=== PATIENT | male | born 1970 | race Two or more races ===

== ENCOUNTER 2017-06-03 14:36 | Inpatient (IN) | payer OTHER ==
[~2017-06-03] VITALS: Ht 165.1 cm; Wt 72.7 kg
[2017-06-03] MEDS ORDERED: ONDANSETRON 4 MG INJ IV PRN (17:00)
[2017-06-03] MEDS ORDERED: HYDROCODONE/APAP (5/325) TAB PO PRN (17:00)
[2017-06-03] MEDS ORDERED: VANCOMYCIN IV PER PHARMACY XX SCH (17:00)
[2017-06-03 17:22] VITALS: BP 166/86; RESP 22
[2017-06-03] MEDS: ACETAMINOPHEN 325 MG TAB PO PRN ×2 (17:50→21:58)
[2017-06-03] MEDS: morphine 2 MG INJ IV PRN ×2 (17:50→21:58)
[2017-06-03 17:57] VITALS: Ht 165.1 cm; Wt 72.7 kg
[2017-06-03 18:28] LABS: ABNORMAL IP MESSAGE 1; BASOPHIL # 0.1 10^3/ul (0.0-0.1); BASOPHILS % 0.5 % (0.0-2.0); EOSINOPHILS % 0.1 % (0.0-7.0); HEMOGLOBIN 11.4 g/dl (14.0-18.0); LYMPHOCYTES # 1.1 10^3/ul (0.8-2.9); LYMPHOCYTES % 12.2 % (15.0-51.0); MEAN CORPUSCULAR HEMOGLOBIN 33.5 pg (29.0-33.0); MEAN CORPUSCULAR HGB CONC 33.5 g/dl (32.0-37.0); MEAN PLATELET VOLUME 12.9 fl (7.4-10.4); MONOCYTE # 0.9 10^3/ul (0.3-0.9); MONOCYTES % 10.3 % (0.0-11.0); NEUTROPHILS % 76.4 % (39.0-77.0); PLATELET COUNT 68 10^3/UL (140-415); POSITIVE DIFF @See below; WHITE BLOOD COUNT 9.1 10^3/ul (4.8-10.8)
[2017-06-03] MEDS ORDERED: VANCOMYCIN 1.5 GM in SOD CHLORIDE 0.9% 250 ML IVPB SCH (18:30)
[2017-06-03 18:56] LABS: ALBUMIN/GLOBULIN RATIO 0.75; BILIRUBIN,DIRECT 0.4 mg/dl (0.00-0.20); BILIRUBIN,INDIRECT 1.4 mg/dl (0-1.1); BILIRUBIN,TOTAL 1.8 mg/dl (0.2-1.3); CALCIUM 8.7 mg/dl (8.4-10.2); CREATININE 0.76 mg/dl (0.61-1.24); POTASSIUM 3.8 mmol/L (3.5-5.1); TOTAL PROTEIN 9.3 g/dl (6.1-8.1)
[2017-06-03 20:23] VITALS: BP 159/82; RESP 17
[2017-06-03] MEDS: FAMOTIDINE 20 MG TAB PO SCH (21:58)
[2017-06-04 02:47] VITALS: BP 159/90; RESP 17
[2017-06-04] MEDS: morphine 2 MG INJ IV PRN ×3 (03:04→21:53)
[2017-06-04] MEDS: HYDROCODONE/APAP (5/325) TAB PO PRN (04:22)
[2017-06-04 07:51] VITALS: BP 153/87; RESP 20
[2017-06-04] MEDS: FAMOTIDINE 20 MG TAB PO SCH ×2 (08:59→21:52)
[2017-06-04] MEDS: ACETAMINOPHEN 325 MG TAB PO PRN ×2 (08:59→15:14)
[2017-06-04] MEDS: VANCOMYCIN 1.25 GM in SOD CHLORIDE 0.9% 250 ML IVPB SCH ×2 (09:01→21:52)
[2017-06-04 14:22] VITALS: BP 145/69; RESP 18
--- NOTE | 2017-06-04 16:28 | PN ---
Date/Time of Note Date/Time of Note DATE: 06/04/17 TIME: 16:23 Assessment/Plan VTE Prophylaxis VTE Prophylaxis Intervention: contraindicated Lines/Catheters IV C[facility]ter Type (from [facility] Saline Lock Urinary Cath still in place: No Assessment/Plan Chief Complaint/Hosp Course 47 y/o with # Left ankle septic arthritis, cx from [facility] +staph # Low grade fevers secondary #1 # ETOH Cirrhosis # Thrombocytopenia Recs - Spoke to Dr alfred trying to arrange OR time for wash out - c/w Vancomycin/rocephin - pain control - ID consult - gently iv fluids Problems: Subjective 24 Hr Interval Summary Free Text/Dictation Says that left ankle edema not improving Low grade fevers Exam/Review of Systems Vital Signs Vitals Vital Signs Date Time Temp Pulse Resp B/P Pulse Ox O2 Delivery O2 Flow Rate FiO2 06/04/17 14:22 100.3 91 18 145/69 98 Intake and Output 06/03/17 06/03/17 06/04/17 15:00 23:00 07:00 Intake Total 250 ml 400 ml Output Total 500 ml Balance 250 ml -100 ml Exam Gen:Awake,alert Neck:supple CVS:Regular rate and rthym Lungs:clear Abdomen:soft, non tender Ext: left ankle ttp erthyema, swelling , restricted motion Results Result Diagram: 06/03/17 1750 06/03/17 1750 Results 24 hrs Laboratory Tests Test 06/03/17 17:50 White Blood Count 9.1 Red Blood Count 3.40 L Hemoglobin 11.4 L Hematocrit 34.0 L Mean Corpuscular Volume 100.0 Mean Corpuscular Hemoglobin 33.5 H Mean Corpuscular Hemoglobin Concent 33.5 Red Cell Distribution Width 18.0 H Platelet Count 68 L Mean Platelet Volume 12.9 H Neutrophils % 76.4 Lymphocytes % 12.2 L Monocytes % 10.3 Eosinophils % 0.1 Basophils % 0.5 Nucleated Red Blood Cells % 0.0 Neutrophils # 7.0 Lymphocytes # 1.1 Monocytes # 0.9 Eosinophils # 0.0 Basophils # 0.1 Nucleated Red Blood Cells # 0.0 Sodium Level 139 Potassium Level 3.8 Chloride Level 106 Carbon Dioxide Level 21 Anion Gap 16 Blood Urea Nitrogen 11 Creatinine 0.76 Glucose Level 119 Calcium Level 8.7 Total Bilirubin 1.8 H Direct Bilirubin 0.40 H Indirect Bilirubin 1.4 H Aspartate Amino Transf (AST/SGOT) 115 H Alanine Aminotransferase (ALT/SGPT) 46 Alkaline Phosphatase 244 H Total Protein 9.3 H Albumin 4.0 Globulin 5.30 H Albumin/Globulin Ratio 0.75 Medications Medications Current Medications Acetaminophen (Tylenol Tab) 650 mg Q6H PRN PO PAIN AND OR ELEVATED TEMP Last administered on 06/04/17 15:14; Admin Dose 650 MG; Start 06/03/17 at 17:00 Morphine Sulfate (morphine) 2 mg Q4H PRN IV PAIN LEVEL 6-10 Last administered on 06/04/17 11:49; Admin Dose 2 MG; Start 06/03/17 at 17:00 Ondansetron HCl (Zofran Inj) 4 mg Q6 PRN IV NAUSEA AND/OR VOMITING; Start at 17:00 Famotidine (Pepcid) 20 mg BID PO Last administered on 06/04/17 08:59; Admin Dose 20 MG; Start 06/03/17 at 21:00 Influenza Virus Vaccine 0.5 ml 0.5 ml ONCE ONCE IM* ; Start 06/05/17 at 10:00; Stop 06/05/17 at 10:01 Vancomycin HCl/ Sodium Chloride (Vancocin/NS) 250 ml @ 83.333 mls/ hr Q12H IVPB Last administered on 06/04/17 09:01; Admin Dose 83.333 MLS/HR; Start at 09:00 Acetaminophen/ Hydrocodone Bitart ([place] (5/325)) 1 tab Q4H PRN PO PAIN LEVEL 6 -10 Last administered on 06/04/17 04:22; Admin Dose 1 TAB; Start 06/04/17 at 04:15 Miscellaneous Information VANCOMYCIN TROUGH AT 0800 ONCE ONCE XX ; Start 06/05/17 at 08:00; Stop 06/05/17 at 08:01 Ceftriaxone Sodium (Rocephin) 50 ml @ 100 mls/hr Q24H IVPB ; Start 06/04/17 at 16:30 SHAYY MCCABE MD Jun 04, 2017 16:28
[2017-06-04] MEDS: CEFTRIAXONE 1 GM/50 ML (PMX) 50 ML IVPB SCH (16:34)
[2017-06-04 17:07] LABS: INR 1.32; PROTIME 16.5 Sec (12.2-14.2); PT RATIO 1.3
[2017-06-04 20:00] VITALS: BP 156/80; RESP 20
[2017-06-05] VITALS (14 sets, daily range): BP systolic 121–167; BP diastolic 60–87; PULSE 78–88; RESP 14–20
[2017-06-05] MEDS: HYDROCODONE/APAP (5/325) TAB PO PRN (01:48)
[2017-06-05 05:51] LABS: ABNORMAL IP MESSAGE 1; BASOPHIL # 0.1 10^3/ul (0.0-0.1); BASOPHILS % 0.6 % (0.0-2.0); EOSINOPHILS % 0.4 % (0.0-7.0); HEMATOCRIT 30.8 % (42.0-52.0); HEMOGLOBIN 10.3 g/dl (14.0-18.0); LYMPHOCYTES # 1.2 10^3/ul (0.8-2.9); MEAN CORPUSCULAR HEMOGLOBIN 33.1 pg (29.0-33.0); MEAN CORPUSCULAR HGB CONC 33.4 g/dl (32.0-37.0); MONOCYTE # 1.3 10^3/ul (0.3-0.9); MONOCYTES % 15.8 % (0.0-11.0); NEUTROPHIL # 5.4 10^3/ul (1.6-7.5); NEUTROPHILS % 67.7 % (39.0-77.0); PLATELET COUNT 74 10^3/UL (140-415); POSITIVE DIFF @See below; RED BLOOD COUNT 3.11 10^6/ul (4.70-6.10); RED CELL DISTRIBUTION WIDTH 17.5 % (11.5-14.5)
[2017-06-05 06:24] LABS: MAGNESIUM 1.8 mg/dl (1.7-2.5); PHOSPHORUS 3.4 mg/dl (2.5-4.9)
[2017-06-05 06:27] LABS: ALBUMIN 3.2 g/dl (3.3-4.9); ALBUMIN/GLOBULIN RATIO 0.62; CALCIUM 8.4 mg/dl (8.4-10.2); CREATININE 0.69 mg/dl (0.61-1.24); POTASSIUM 3.7 mmol/L (3.5-5.1); TOTAL PROTEIN 8.3 g/dl (6.1-8.1)
--- NOTE | 2017-06-05 08:39 | HP ---
DATE OF ADMISSION: 06/03/2017 REASON FOR ADMISSION: Left ankle septic arthritis. HISTORY OF PRESENT ILLNESS: Patient is transferred from [facility] for septic arthritis of the left ankle. Since the patient is contracted, this hospital is capitated with the insurance. A 47-year-old male with heavy ETOH abuse in the past, history of cirrhosis, seen in ED at [facility] on 05/31/2017 with left ankle pain associated with redness and swelling. Ankle was aspirated with a cell count of 39,000, 89% PMNs, no crystals. Initial negative Gram stain. The patient had pain improvement with NSAIDs, bilateral DIP joint tophi, no pain with motion . 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 The patient was having worsening pain, swelling, fevers and chills. Ibuprofen did not help. Ortho was consulted there, and pain was spreading proximally to the mid leg. He was not on antibiotics. Prior cultures have resulted with +1 staph infection. However, case was discussed with Dr. Bills. Patient was started on vancomycin and Rocephin, and was transferred here for insurance reasons. PAST MEDICAL HISTORY: ETOH abuse, cirrhosis. PAST SURGICAL HISTORY: Denies. ALLERGIES: DENIES. MEDICATIONS AT HOME: Denies. SOCIAL HISTORY: Lives in a van. Does not work. Endorses heavy alcohol daily, 4 to 6 [employer] daily. Denies any smoking, any IVDA. He stopped drinking 2 weeks ago. FAMILY HISTORY: Noncontributory. REVIEW OF SYSTEMS: Patient used to have frequent nosebleeds, which is on and off. Denies any abdominal pain, nausea, vomiting, diarrhea. Denies any headache, any blurry vision. Denies any focal neurological deficits. Patient has left ankle swelling and pain. PHYSICAL EXAMINATION: VITAL SIGNS: Fever 100.3, heart rate 97, respirations 22, blood pressure 153/87 , saturating 97%. GENERAL: The patient is awake, alert, oriented x4, does not appear to be in any acute distress. HEENT: Pupils equal, round, reactive to light. NECK: Supple, no JVD. HEART: Regular rate and rhythm. LUNGS: Clear to auscultate bilaterally. ABDOMEN: Soft, nontender, nondistended. Positive normoactive bowel sounds. EXTREMITIES: Left lower extremity 2+ distal pulses. Ankle joint with joint effusion, warmth some edema. Patient has a mike on the left lower extremity. Full range of motion, 5/5 strength. DIAGNOSTIC DATA: Shows here a white count 9.1, hemoglobin 11.4, platelet count 68. BMP within normal limits. Total bilirubin 1.8, direct bilirubin 0.8, AST 115, alkaline phosphatase 244. ASSESSMENT AND PLAN: This is a 47-year-old male presenting with: 1. Left ankle septic arthritis positive for staph. 2. ETOH cirrhosis. 3. Thrombocytopenia secondary to #2. PLAN: At this period of time, the patient is admitted to med-surg. We will continue the patient on IV fluids, vancomycin and Rocephin. Podiatry/ortho consultation has been requested. Patient will need washout of the joint. The rest of the treatment will depend on the patient's hospitalization course. Dictated By: SHAYY RAMIREZ/ETHAN Conf#: [id number] DID#: [id number] LEANNE
[2017-06-05] MEDS: VANCOMYCIN 1.25 GM in SOD CHLORIDE 0.9% 250 ML IVPB SCH ×2 (09:40→17:33)
[2017-06-05] MEDS: FAMOTIDINE 20 MG TAB PO SCH ×2 (09:41→23:16)
[2017-06-05] MEDS: morphine 2 MG INJ IV PRN (09:41)
[2017-06-05] MEDS ORDERED: INFLUENZA VIRUS VACCINE 0.5 ML SYG IM* ONE (10:00)
--- NOTE | 2017-06-05 12:15 | CONS ---
Date/Time of Note Date/Time of Note DATE: 06/05/17 TIME: 12:11 Assessment/Plan Assessment/Plan Problems: (1) Septic arthritis of ankle (2) Left ankle pain (3) ETOH abuse (4) EtOH dependence (5) Cirrhosis of liver Additional Assessment/Plan Patient will be scheduled for left ankle arthroscopy with debridement. Thank you again for involving me in the care of this patient. If you have any questions regarding this case, please feel free to contact me at pager: [phone] or reach me at mobile: [phone]. Consultation Date/Type/Reason Admit Date/Time Jun 03, 2017 at 16:30 Date of Consultation: Jun 03, 2017 Type of Consultation: Foot and ankle surgery Reason for Consultation Evaluation and treatment of left ankle Hx of Present Illness Thank you very much for involving me in the care of this patient. As you know this is a 47-year-old male patient with multiple medical problems including heavy EtOH abuse, history of cirrhosis, who was transferred from [facility] for septic arthritis of the left ankle. Patient was seen on May 31, 2017 at the emergency room at [facility]. His ankle was aspirated with a cell count of 39,000. Patient was given NSAIDs and his pain was apparently improved and the thought was that his symptoms are consistent with crystal arthropathy. Patient apparently had worsening of his pain, swelling with fever and chills. Currently patient is started on vancomycin and Rocephin I was consulted for evaluation and treatment. Past Medical History As per history of present illness. Past Surgical History As per history of present illness. Social History As per history of present illness. Smoking Status: Never smoker Exam/Review of Systems Vital Signs Vitals Vital Signs Date Time Temp Pulse Resp B/P Pulse Ox O2 Delivery O2 Flow Rate FiO2 06/05/17 07:35 97.8 97 18 137/74 97 Intake and Output 06/04/17 06/04/17 06/05/17 15:00 23:00 07:00 Intake Total 250 ml 1550 ml 970 ml Output Total 1200 ml 1000 ml Balance 250 ml 350 ml -30 ml Exam Patient was seen and examined at bedside. Patient has edema of the left ankle with marked area corresponds to the erythema. Tender to exam with no crepitus on range of motion. Palpable pulses with decreased sensation noted bilateral feet. Imaging reviewed. Labs reviewed. Results Result Diagram: 06/05/17 0444 06/05/17 0444 Results 24 hrs Laboratory Tests Test 06/04/17 16:29 06/05/17 04:44 06/05/17 08:46 Prothrombin Time 16.5 H Prothrombin Time Ratio 1.3 INR International Normalized Ratio 1.32 White Blood Count 8.0 Red Blood Count 3.11 L Hemoglobin 10.3 L Hematocrit 30.8 L Mean Corpuscular Volume 99.0 Mean Corpuscular Hemoglobin 33.1 H Mean Corpuscular Hemoglobin Concent 33.4 Red Cell Distribution Width 17.5 H Platelet Count 74 L Mean Platelet Volume 12.0 H Neutrophils % 67.7 Lymphocytes % 15.0 Monocytes % 15.8 H Eosinophils % 0.4 Basophils % 0.6 Nucleated Red Blood Cells % 0.0 Neutrophils # 5.4 Lymphocytes # 1.2 Monocytes # 1.3 H Eosinophils # 0.0 Basophils # 0.1 Nucleated Red Blood Cells # 0.0 Sodium Level 136 Potassium Level 3.7 Chloride Level 104 Carbon Dioxide Level 23 Anion Gap 13 Blood Urea Nitrogen 9 Creatinine 0.69 Glucose Level 99 Calcium Level 8.4 Phosphorus Level 3.4 Magnesium Level 1.8 Total Bilirubin 1.0 Direct Bilirubin 0.00 # Indirect Bilirubin 1.0 Aspartate Amino Transf (AST/SGOT) 109 H Alanine Aminotransferase (ALT/SGPT) 54 Alkaline Phosphatase 218 H Total Protein 8.3 H Albumin 3.2 L Globulin 5.10 H Albumin/Globulin Ratio 0.62 Vancomycin Level Trough < 5.0 L Medications Medications Current Medications Acetaminophen (Tylenol Tab) 650 mg Q6H PRN PO PAIN AND OR ELEVATED TEMP Last administered on 06/04/17 15:14; Admin Dose 650 MG; Start 06/03/17 at 17:00 Morphine Sulfate (morphine) 2 mg Q4H PRN IV PAIN LEVEL 6-10 Last administered on 06/05/17 09:41; Admin Dose 2 MG; Start 06/03/17 at 17:00 Ondansetron HCl (Zofran Inj) 4 mg Q6 PRN IV NAUSEA AND/OR VOMITING; Start at 17:00 Famotidine (Pepcid) 20 mg BID PO Last administered on 06/05/17 09:41; Admin Dose 20 MG; Start 06/03/17 at 21:00 Acetaminophen/ Hydrocodone Bitart 1 tab 1 tab Q4H PRN PO PAIN LEVEL 6-10 Last administered on 06/05/17 01:48; Admin Dose 1 TAB; Start 06/04/17 at 04:15 Ceftriaxone Sodium 50 ml @ 100 mls/hr Q24H IVPB Last administered on 16:34; Admin Dose 100 MLS/HR; Start 06/04/17 at 16:30 Vancomycin HCl/ Sodium Chloride (Vancocin/NS) 250 ml @ 83.333 mls/ hr Q8H IVPB ; Start 06/05/17 at 18:00 CASPER GARCIA DPM Jun 05, 2017 12:15
--- NOTE | 2017-06-05 12:16 | PN ---
Date/Time of Note Date/Time of Note DATE: 06/05/17 TIME: 12:15 Assessment/Plan Lines/Catheters IV Catheter Type (from Nrs): Saline Lock May in Place (from Nrsg): No Assessment/Plan Problems: (1) Cirrhosis of liver (2) Left ankle pain (3) Septic arthritis of ankle (4) EtOH dependence (5) ETOH abuse Assessment/Plan Patient is scheduled today at 5:30 PM for left ankle arthroscopy with debridement. Orders are placed in the chart. Subjective 24 Hr Interval Summary Patient was seen at bedside. Patient is in no acute distress. Patient reports no new adverse events. Patient denies fever, chills, nausea or vomiting. Patient denies pain. Patient denies recent trauma. Patient reports bandages are being changed as directed. Patient does not report any new problems. Exam/Review of Systems Vital Signs Vitals Vital Signs Date Time Temp Pulse Resp B/P Pulse Ox O2 Delivery O2 Flow Rate FiO2 06/09/17 14:40 98.1 87 22 175/105 98 06/05/17 21:45 Room Air Intake and Output 06/08/17 06/08/17 06/09/17 15:00 23:00 07:00 Intake Total 250 ml 1620 ml 700 ml Output Total 700 ml 850 ml Balance 250 ml 920 ml -150 ml Exam Free Text/Dictation Patient continues to have pain on examination of the left ankle with mild reduction in edema and significant reduction in erythema. Patient is on IV antibiotics. X-ray shows no fracture or dislocation of the left ankle. No other changes noted on examination today. Results Result Diagram: 06/09/17 0501 06/08/17 0450 CASPER GARCIA DPM Jun 05, 2017 12:15
--- NOTE | 2017-06-05 14:08 | CONS ---
Date/Time of Note Date/Time of Note DATE: 06/05/17 TIME: 14:04 Consult Date/Type/Reason Admit Date/Time Jun 03, 2017 at 16:30 Initial Consult Date 06/03/17 Type of Consultation: ID Objective Vital Signs Date Time Temp Pulse Resp B/P Pulse Ox O2 Delivery O2 Flow Rate FiO2 06/05/17 07:35 97.8 97 18 137/74 97 Intake and Output 06/04/17 06/04/17 06/05/17 14:59 22:59 06:59 Intake Total 250 ml 1550 ml 970 ml Output Total 1200 ml 1000 ml Balance 250 ml 350 ml -30 ml Results/Medications Result Diagram: 06/05/17 0444 06/05/17 0444 Results 24 hrs Laboratory Tests Test 06/04/17 16:29 06/05/17 04:44 06/05/17 08:46 Prothrombin Time 16.5 H Prothrombin Time Ratio 1.3 INR International Normalized Ratio 1.32 White Blood Count 8.0 Red Blood Count 3.11 L Hemoglobin 10.3 L Hematocrit 30.8 L Mean Corpuscular Volume 99.0 Mean Corpuscular Hemoglobin 33.1 H Mean Corpuscular Hemoglobin Concent 33.4 Red Cell Distribution Width 17.5 H Platelet Count 74 L Mean Platelet Volume 12.0 H Neutrophils % 67.7 Lymphocytes % 15.0 Monocytes % 15.8 H Eosinophils % 0.4 Basophils % 0.6 Nucleated Red Blood Cells % 0.0 Neutrophils # 5.4 Lymphocytes # 1.2 Monocytes # 1.3 H Eosinophils # 0.0 Basophils # 0.1 Nucleated Red Blood Cells # 0.0 Sodium Level 136 Potassium Level 3.7 Chloride Level 104 Carbon Dioxide Level 23 Anion Gap 13 Blood Urea Nitrogen 9 Creatinine 0.69 Glucose Level 99 Calcium Level 8.4 Phosphorus Level 3.4 Magnesium Level 1.8 Total Bilirubin 1.0 Direct Bilirubin 0.00 # Indirect Bilirubin 1.0 Aspartate Amino Transf (AST/SGOT) 109 H Alanine Aminotransferase (ALT/SGPT) 54 Alkaline Phosphatase 218 H Total Protein 8.3 H Albumin 3.2 L Globulin 5.10 H Albumin/Globulin Ratio 0.62 Vancomycin Level Trough < 5.0 L Medications Current Medications Acetaminophen (Tylenol Tab) 650 mg Q6H PRN PO PAIN AND OR ELEVATED TEMP Last administered on 06/04/17t 15:14; Admin Dose 650 MG; Start 06/03/17 at 17:00 Morphine Sulfate (morphine) 2 mg Q4H PRN IV PAIN LEVEL 6-10 Last administered on 06/05/17 09:41; Admin Dose 2 MG; Start 06/03/17 at 17:00 Ondansetron HCl (Zofran Inj) 4 mg Q6 PRN IV NAUSEA AND/OR VOMITING; Start at 17:00 Famotidine (Pepcid) 20 mg BID PO Last administered on 06/05/17 09:41; Admin Dose 20 MG; Start 06/03/17 at 21:00 Acetaminophen/ Hydrocodone Bitart 1 tab 1 tab Q4H PRN PO PAIN LEVEL 6-10 Last administered on 06/05/17 01:48; Admin Dose 1 TAB; Start 06/04/17 at 04:15 Ceftriaxone Sodium 50 ml @ 100 mls/hr Q24H IVPB Last administered on 16:34; Admin Dose 100 MLS/HR; Start 06/04/17 at 16:30 Vancomycin HCl/ Sodium Chloride (Vancocin/NS) 250 ml @ 83.333 mls/ hr Q8H IVPB ; Start 06/05/17 at 18:00 Assessment/Plan Chief Complaint/Hosp Course No acute changes, awake, c/o L foot pain, no fevers Abx: Vanco Rocephin GENERAL: The patient is awake, alert, in no acute distress. HEENT: Pupils equal, round, reactive to light. NECK: Supple HEART: S1, S2, regular rate and rhythm. LUNGS: Clear to auscultate bilaterally. ABDOMEN: Soft, nontender, nondistended,+ normoactive bowel sounds. EXTREMITIES: Left lower extremity with edema/erythema Assessment: 1. L foot cellulitis, septic arthritis==> fluid cx + staph from another facility 2. Cirrhosis 3. Hx ETOH 4. Anemia Plan: Stable, continue abx, keep LLE elevated, f/u podiatry rec-s, pending i&d DW staff Problems: GLENDA SOLIS NP Jun 05, 2017 14:08
[2017-06-05] MEDS: ACETAMINOPHEN 325 MG TAB PO PRN (14:51)
--- NOTE | 2017-06-05 15:19 | CONS ---
DATE OF ADMISSION: 06/03/2017 DATE OF CONSULTATION: 06/04/2017 TYPE OF CONSULTATION: Infectious Disease. REASON FOR CONSULTATION: Antibiotic management. HISTORY OF PRESENT ILLNESS: Levi Verduzco is a 47-year-old male who was admitted with left ankle septic arthritis and is being seen for antibiotic management. PAST PROBLEMS: Include: 1. Alcohol abuse. 2. Cirrhosis of liver. Acutely, the patient was transferred from [facility] with septic arthritis of the left ankle . The patient is contracted with this hospital. He has history of heavy alcohol abuse. He was see n on 05/31/2017 with left ankle pain associated with redness and swelling. The ankle was aspirated with a white count of 39,000, 89% polys, initial negative Gram stain and improvement with NSAIDs. H e has bilateral DIP joint tophi and it was thought that he had gout. He had worsening pain, swellin g, fever and cultures have grown out staph. He was started on vancomycin and Rocephin. On admissio n, his white count was 9.1, H and H 11.4 and 34, platelet count of 68,000. On the , white count of 8000. BUN and creatinine 11/0.76 and today BUN and creatinine 9/0.69. PAST MEDICAL HISTORY: Operations as outlined. FAMILY HISTORY: Noncontributory. SOCIAL HISTORY: He lives in a van. He is a heavy alcohol abuser. Does not smoke or abuse drugs, a ccording to the patient. ALLERGIES: NONE TO PENICILLIN, SULFA OR FOODS. MEDICATIONS: Per chart. REVIEW OF SYSTEMS: Noncontributory. The patient was seen also by Dr. Hurley, who felt he had septic arthritis of the ankle and will be s cheduled for left ankle arthroscopy and debridement. PHYSICAL EXAMINATION: GENERAL: The patient is alert, responsive, in no acute distress. VITAL SIGNS: Stable. T-max 100.3. SKIN: Without generalized rash. HEENT: Within normal limits. NECK: Supple. LYMPH NODES: None palpable. CHEST: Decreased breath sounds at the bases. HEART: Without murmur or gallop. ABDOMEN: Soft, nontender, without organosplenomegaly or masses. EXTREMITIES: His ankle joint has an effusion, it is warm and there is edema. RECTAL AND GENITAL: Deferred. NEUROLOGIC: No focal neurological abnormalities. IMPRESSION AND PLAN: The patient has staph growing from his wound, but it is not clear if it is sta ph aureus or staph epidermidis, so we need further information on that. I will continue him on his vancomycin, he is currently also on ceftriaxone. He needs arthroscopy and Dr. Hurley will do so. I will dictate my findings to Dr. Rangel and Dr. Hurley. Dictated By: RONALD REID MD, JD/ETHAN Conf#: [id number] DID#: [id number]
[2017-06-05] MEDS: CEFTRIAXONE 1 GM/50 ML (PMX) 50 ML IVPB SCH (16:34)
--- NOTE | 2017-06-05 17:27 | PN ---
Date/Time of Note Date/Time of Note DATE: 06/05/17 TIME: 17:25 Assessment/Plan VTE Prophylaxis VTE Prophylaxis Intervention: contraindicated Lines/Catheters IV Catheter Type (from [facility]): Saline Lock Urinary Cath still in place: No Assessment/Plan Chief Complaint/Hosp Course 47 y/o with # Left ankle septic arthritis, cx from [facility] +staph # Low grade fevers secondary #1 # ETOH Cirrhosis # Thrombocytopenia likely due to cirrhosis Recs - OR today for Arthroscopic wash out - c/w Vancomycin/rocephin - pain control - ID consult Problems: Subjective 24 Hr Interval Summary Free Text/Dictation Pain in left ankle, going to OR today at 5 pm Exam/Review of Systems Vital Signs Vitals Vital Signs Date Time Temp Pulse Resp B/P Pulse Ox O2 Delivery O2 Flow Rate FiO2 06/05/17 14:12 99.8 85 16 151/85 99 Intake and Output 06/04/17 06/04/17 06/05/17 15:00 23:00 07:00 Intake Total 250 ml 1550 ml 970 ml Output Total 1200 ml 1000 ml Balance 250 ml 350 ml -30 ml Exam a&Ox3 CTAB S1S2 present soft NTND BS+ Extremities: left ankle joint, pain, edema, effusion Results Result Diagram: 06/05/17 0444 06/05/17 0444 Results 24 hrs Laboratory Tests Test 06/05/17 04:44 06/05/17 08:46 White Blood Count 8.0 Red Blood Count 3.11 L Hemoglobin 10.3 L Hematocrit 30.8 L Mean Corpuscular Volume 99.0 Mean Corpuscular Hemoglobin 33.1 H Mean Corpuscular Hemoglobin Concent 33.4 Red Cell Distribution Width 17.5 H Platelet Count 74 L Mean Platelet Volume 12.0 H Neutrophils % 67.7 Lymphocytes % 15.0 Monocytes % 15.8 H Eosinophils % 0.4 Basophils % 0.6 Nucleated Red Blood Cells % 0.0 Neutrophils # 5.4 Lymphocytes # 1.2 Monocytes # 1.3 H Eosinophils # 0.0 Basophils # 0.1 Nucleated Red Blood Cells # 0.0 Sodium Level 136 Potassium Level 3.7 Chloride Level 104 Carbon Dioxide Level 23 Anion Gap 13 Blood Urea Nitrogen 9 Creatinine 0.69 Glucose Level 99 Calcium Level 8.4 Phosphorus Level 3.4 Magnesium Level 1.8 Total Bilirubin 1.0 Direct Bilirubin 0.00 # Indirect Bilirubin 1.0 Aspartate Amino Transf (AST/SGOT) 109 H Alanine Aminotransferase (ALT/SGPT) 54 Alkaline Phosphatase 218 H Total Protein 8.3 H Albumin 3.2 L Globulin 5.10 H Albumin/Globulin Ratio 0.62 Vancomycin Level Trough < 5.0 L Medications Medications Current Medications Acetaminophen (Tylenol Tab) 650 mg Q6H PRN PO PAIN AND OR ELEVATED TEMP Last administered on 06/05/17 14:51; Admin Dose 650 MG; Start 06/03/17 at 17:00 Morphine Sulfate (morphine) 2 mg Q4H PRN IV PAIN LEVEL 6-10 Last administered on 06/05/17 09:41; Admin Dose 2 MG; Start 06/03/17 at 17:00 Ondansetron HCl (Zofran Inj) 4 mg Q6 PRN IV NAUSEA AND/OR VOMITING; Start at 17:00 Famotidine (Pepcid) 20 mg BID PO Last administered on 06/05/17 09:41; Admin Dose 20 MG; Start 06/03/17 at 21:00 Acetaminophen/ Hydrocodone Bitart 1 tab 1 tab Q4H PRN PO PAIN LEVEL 6-10 Last administered on 06/05/17 01:48; Admin Dose 1 TAB; Start 06/04/17 at 04:15 Ceftriaxone Sodium 50 ml @ 100 mls/hr Q24H IVPB Last administered on 16:34; Admin Dose 100 MLS/HR; Start 06/04/17 at 16:30 Vancomycin HCl/ Sodium Chloride (Vancocin/NS) 250 ml @ 83.333 mls/ hr Q8H IVPB ; Start 06/05/17 at 18:00 SHAYY MCCABE MD Jun 05, 2017 17:27
--- NOTE | 2017-06-05 19:16 | HPN ---
Date/Time of Note Date/Time of Note DATE: 06/05/17 TIME: 19:16 Interval H&P Admission Note Pt. seen H&P reviewed: No system changes CASPER GARCIA DPM Jun 05, 2017 19:16
[2017-06-05] MEDS ORDERED: PROPOFOL 20 ML ONE (19:41)
[2017-06-05] MEDS ORDERED: MIDAZOLAM 1 MG/ML 2 ML INJ ONE (19:41)
[2017-06-05] MEDS ORDERED: POVIDONE IODINE 10% 28.4 GM OINT ONE (19:44)
[2017-06-05] MEDS ORDERED: ROPIVACAINE 0.5 % 30 ML VIAL ONE (19:44)
[2017-06-05] MEDS ORDERED: LABETALOL HCL 20MG INJ ONE (20:21)
[2017-06-05] MEDS ORDERED: HYDROmorphONE 2 MG/ML SYG ONE (20:22)
[2017-06-05] MEDS ORDERED: KETOROLAC 30 MG INJ ONE (20:24)
[2017-06-05] MEDS ORDERED: ACETAMINOPHEN 1000MG/100ML IV 100 ML ONE (20:24)
[2017-06-05] MEDS ORDERED: ONDANSETRON 4 MG INJ ONE (20:24)
[2017-06-05] MEDS ORDERED: DEXAMETHASONE 4 MG/ML 1 ML INJ ONE (20:24)
[2017-06-05] MEDS ORDERED: METOCLOPRAMIDE 10 MG INJ ONE (20:24)
[2017-06-05] MEDS ORDERED: METOCLOPRAMIDE 10 MG INJ IV PRN (20:30)
[2017-06-05] MEDS ORDERED: morphine (1 MG/ML) 10ML SYRINGE IV PRN ×3 (20:30)
[2017-06-05] MEDS ORDERED: FENTAnyl 50 MCG/ML VIAL IV PRN ×3 (20:30)
[2017-06-05] MEDS ORDERED: ONDANSETRON 4 MG INJ IV PRN (20:30)
[2017-06-05] MEDS ORDERED: LABETALOL HCL 20MG INJ IV PRN (20:30)
[2017-06-05] MEDS ORDERED: EPHEDrine SULFATE 50 MG/5 ML SYG IV PRN (20:30)
[2017-06-05] MEDS ORDERED: OXYCODONE/ACETAMINOPHEN (5/325) TAB PO PRN ×2 (20:30)
[2017-06-05] MEDS ORDERED: KETOROLAC 30 MG INJ IV PRN (20:30)
[2017-06-05] MEDS ORDERED: HYDROmorphONE (0.2 MG/ML) 10ML SYG IV PRN ×3 (20:30)
[2017-06-05] MEDS ORDERED: MEPERIDINE 25 MG INJ IV PRN (20:30)
[2017-06-05] MEDS ORDERED: DIPHENHYDRAMINE 50 MG INJ IV PRN (20:30)
[2017-06-05] MEDS ORDERED: hydrALAzine 20 MG INJ IV PRN (20:30)
[2017-06-05] MEDS ORDERED: POLYMYXIN/BACITRACIN 1L IRRIG ONE (20:33)
[2017-06-05] MEDS ORDERED: SUGAMMADEX SODIUM 200 MG/2 ML VIAL IV ONE (20:49)
--- NOTE | 2017-06-05 21:06 | OPR ---
Date/Time of Note Date/Time of Note DATE: 06/05/17 TIME: 20:50 Operative Report Procedure Date: Jun 05, 2017 Preoperative Diagnosis Left ankle pain Suspicious for left septic ankle EtOH abuse Postoperative Diagnosis Left ankle pain Suspicious for left septic ankle EtOH abuse Operation/Procedure Performed Left ankle diagnostic arthroscopy with debridement Surgeon see signature line Learning Specialist None Anesthesia Type: general Estimated Blood Loss: minimal Transfusion none Specimen Culture from left anterolateral portal Grafts/Implants none Complications none Pt Condition Post Procedure: stable Disposition: PACU Indications This is a pleasant 47-year-old male patient who has been suffering with "significant left ankle pain". Patient was evaluated and was found to have swelling and redness in the left ankle with erythema. Patient apparently went to [facility] emergency with complaint of significant left ankle pain. Patient apparently underwent left ankle aspiration and had a 39,000 white blood cell count. He was given antibiotics and was told that his insurance is capped at a different hospital. He was sent to [facility] for further evaluation and treatment. His condition got worse. I was contacted for evaluation. Risks and complications of this type of surgery was discussed with patient in great detail. Risks and complications discussed included, but are not limited to, postoperative infection, postoperative pain, hardware failure, failure of surgery to correct the problem, need for additional surgical procedures, deep venous thrombosis, limb loss and loss of life. Patient understands the discussion and agrees to the procedure. An informed consent was signed, obtained and placed in the chart. No guarantees or warrantees was given or implied as to the outcome of the procedure either in verbal or written form. Procedure Description The patient was seen in the preoperative area. The proposed surgery was discussed with patient in great detail. Risks and complications of this type of surgery was discussed with patient in great detail. Opportunity was given to patient to ask questions and all questions were answered. The patient acknowledges understanding of the discussion. An informed consent was then obtained, signed and placed in the chart. Patient was taken to the operating room and was placed on the operating table in the supine position. All bony prominences were padded properly. A timeout was called by the circulating nurse. Everyone in the operating room was agreeable to the timeout. The patient was then placed under general anesthesia by the anesthesiologist. A thigh tourniquet was applied to the left thigh. Left lower extremity was then scrubbed, prepped and draped in the usual aseptic manner. Left anterior lateral portal was created using a #11 blade. Blunt dissection into the joint was made using a trocar and obturator. There was clear drainage noted which was cultured. Trocar was removed and the scope was inserted. The ankle was surveyed from lateral to medial and pictures were obtained. There was no purulence noted in the ankle joint. There was some synovitis present. No specific indication of septic joint or crystalloid arthropathy noted. An anteromedial portal was created in a similar manner. Shaver was inserted and debridement of synovial tissue was done. Next, the scope was inserted from medial to lateral and the ankle surgery from lateral to medial with pictures obtained. Next, I irrigated the ankle joints with PB irrigation about 1000 cc. All instrumentation was then removed from the ankle joint. The incisions were closed with elmer. I injected the ankle with 0.5% Marcaine plain. Sterile dressing was applied. The thigh tourniquet was deflated at this time and prompt hyperemic response was noted to digits of the left foot. Patient tolerated the procedure and anesthesia well. He was transferred to recovery room with vital signs stable as status intact to the left lower extremity. Patient will be discharged back to the floor after postoperative monitoring. Postoperative orders were written. Patient will be followed up in- house. CASPER GARCIA DPM Jun 05, 2017 21:06
--- NOTE | 2017-06-06 01:51 | RADRPT ---
PROCEDURE: XR left Ankle. CLINICAL INDICATION: Preop. TECHNIQUE: AP, oblique and lateral views of the left ankle were performed. COMPARISON: None. FINDINGS: No fracture or dislocation. The bones are normal mineralization without cortical destruction. The talar dome is intact and ankle joint mortise well maintained. The remaining bones of the foot an d ankle are unremarkable. No soft tissue or osseous abnormality. IMPRESSION: 1. No fracture, dislocation, or soft tissue abnormality. RPTAT:AAJJ Physician Seng Date Time Electronically viewed and signed by Physician Seng on 06/06/2017 01:51 MARY ELLEN/
[2017-06-06 02:04] VITALS: BP 120/75; RESP 16
[2017-06-06] MEDS: VANCOMYCIN 1.25 GM in SOD CHLORIDE 0.9% 250 ML IVPB SCH ×3 (02:39→18:23)
[2017-06-06 06:27] LABS: ABNORMAL IP MESSAGE 1; BASOPHILS % 0.2 % (0.0-2.0); HEMOGLOBIN 10.2 g/dl (14.0-18.0); LYMPHOCYTES # 0.4 10^3/ul (0.8-2.9); LYMPHOCYTES % 6.7 % (15.0-51.0); MEAN CORPUSCULAR HEMOGLOBIN 33.2 pg (29.0-33.0); MEAN CORPUSCULAR HGB CONC 32.9 g/dl (32.0-37.0); MEAN PLATELET VOLUME 11.4 fl (7.4-10.4); MONOCYTE # 0.4 10^3/ul (0.3-0.9); MONOCYTES % 6.3 % (0.0-11.0); NEUTROPHIL # 4.8 10^3/ul (1.6-7.5); NEUTROPHILS % 85.9 % (39.0-77.0); PLATELET COUNT 80 10^3/UL (140-415); POSITIVE DIFF @See below; RED BLOOD COUNT 3.07 10^6/ul (4.70-6.10); RED CELL DISTRIBUTION WIDTH 16.9 % (11.5-14.5); WHITE BLOOD COUNT 5.6 10^3/ul (4.8-10.8)
[2017-06-06 06:32] LABS: CALCIUM 7.9 mg/dl (8.4-10.2); CREATININE 0.62 mg/dl (0.61-1.24); POTASSIUM 3.7 mmol/L (3.5-5.1)
[2017-06-06 08:00] VITALS: BP 149/89; RESP 19
[2017-06-06] MEDS: FAMOTIDINE 20 MG TAB PO SCH ×2 (08:28→21:20)
[2017-06-06] MEDS: morphine 2 MG INJ IV PRN (08:39)
--- NOTE | 2017-06-06 11:00 | PN ---
Date/Time of Note Date/Time of Note DATE: 06/06/17 TIME: 10:59 Assessment/Plan VTE Prophylaxis VTE Prophylaxis Intervention: LMWH Lines/Catheters IV [facility] (from [facility]): Saline Lock Urinary Cath still in place: No Assessment/Plan Chief Complaint/Hosp Course 1. Left ankle septic arthritis, cx from [facility] +staph 2. ETOH Cirrhosis 3. Thrombocytopenia likely due to cirrhosis Problems: Assessment/Plan 1. Keep casrt on 2. continue a/b Subjective 24 Hr Interval Summary Musculoskeletal: bone/joint pain (left ankle) Exam/Review of Systems Vital Signs Vitals Vital Signs Date Time Temp Pulse Resp B/P Pulse Ox O2 Delivery O2 Flow Rate FiO2 06/06/17 08:00 97.5 67 19 149/89 98 06/05/17 21:45 Room Air Intake and Output 06/05/17 06/05/17 06/06/17 15:00 23:00 07:00 Intake Total 250 ml 610 ml 1290 ml Output Total 5 ml 1100 ml Balance 250 ml 605 ml 190 ml Exam Constitutional: alert, oriented Cardiovascular: regular rate and rhythm Gastrointestinal: soft Musculoskeletal: swelling (left leg) Results Result Diagram: 06/06/17 0520 06/06/17 0520 Results 24 hrs Laboratory Tests Test 06/06/17 05:20 White Blood Count 5.6 # Red Blood Count 3.07 L Hemoglobin 10.2 L Hematocrit 31.0 L Mean Corpuscular Volume 101.0 Mean Corpuscular Hemoglobin 33.2 H Mean Corpuscular Hemoglobin Concent 32.9 Red Cell Distribution Width 16.9 H Platelet Count 80 L Mean Platelet Volume 11.4 H Neutrophils % 85.9 H Lymphocytes % 6.7 L Monocytes % 6.3 Eosinophils % 0.0 Basophils % 0.2 Nucleated Red Blood Cells % 0.0 Neutrophils # 4.8 Lymphocytes # 0.4 L Monocytes # 0.4 Eosinophils # 0.0 Basophils # 0.0 Nucleated Red Blood Cells # 0.0 Sodium Level 139 Potassium Level 3.7 Chloride Level 105 Carbon Dioxide Level 21 Anion Gap 17 H Blood Urea Nitrogen 10 Creatinine 0.62 Glucose Level 200 # Calcium Level 7.9 L Medications Medications Current Medications Acetaminophen (Tylenol Tab) 650 mg Q6H PRN PO PAIN AND OR ELEVATED TEMP Last administered on 06/05/17t 14:51; Admin Dose 650 MG; Start 06/03/17 at 17:00 Morphine Sulfate (morphine) 2 mg Q4H PRN IV PAIN LEVEL 6-10 Last administered on 06/06/17 08:39; Admin Dose 2 MG; Start 06/03/17 at 17:00 Ondansetron HCl (Zofran Inj) 4 mg Q6 PRN IV NAUSEA AND/OR VOMITING; Start at 17:00 Famotidine (Pepcid) 20 mg BID PO Last administered on 06/06/17 08:28; Admin Dose 20 MG; Start 06/03/17 at 21:00 Acetaminophen/ Hydrocodone Bitart 1 tab 1 tab Q4H PRN PO PAIN LEVEL 6-10 Last administered on 06/05/17 01:48; Admin Dose 1 TAB; Start 06/04/17 at 04:15 Ceftriaxone Sodium 50 ml @ 100 mls/hr Q24H IVPB Last administered on 16:34; Admin Dose 100 MLS/HR; Start 06/04/17 at 16:30 Vancomycin HCl/ Sodium Chloride (Vancocin/NS) 250 ml @ 83.333 mls/ hr Q8H IVPB Last administered on 06/06/17 02:39; Admin Dose 83.333 MLS/HR; Start at 18:00 ASHANTI MARTINES Jun 06, 2017 11:00
[2017-06-06 14:00] VITALS: BP 148/71; RESP 20
--- NOTE | 2017-06-06 14:33 | CONS ---
Date/Time of Note Date/Time of Note DATE: 06/06/17 TIME: 14:32 Consult Date/Type/Reason Admit Date/Time Jun 03, 2017 at 16:30 Initial Consult Date 06/03/17 Type of Consultation: ID Objective Vital Signs Date Time Temp Pulse Resp B/P Pulse Ox O2 Delivery O2 Flow Rate FiO2 06/06/17 08:00 97.5 67 19 149/89 98 06/05/17 21:45 Room Air Intake and Output 06/05/17 06/05/17 06/06/17 15:00 23:00 07:00 Intake Total 250 ml 610 ml 1290 ml Output Total 5 ml 1100 ml Balance 250 ml 605 ml 190 ml Results/Medications Result Diagram: 06/06/17 0506/06/17 0520 Results 24 hrs Laboratory Tests Test 06/06/17 05:20 White Blood Count 5.6 # Red Blood Count 3.07 L Hemoglobin 10.2 L Hematocrit 31.0 L Mean Corpuscular Volume 101.0 Mean Corpuscular Hemoglobin 33.2 H Mean Corpuscular Hemoglobin Concent 32.9 Red Cell Distribution Width 16.9 H Platelet Count 80 L Mean Platelet Volume 11.4 H Neutrophils % 85.9 H Lymphocytes % 6.7 L Monocytes % 6.3 Eosinophils % 0.0 Basophils % 0.2 Nucleated Red Blood Cells % 0.0 Neutrophils # 4.8 Lymphocytes # 0.4 L Monocytes # 0.4 Eosinophils # 0.0 Basophils # 0.0 Nucleated Red Blood Cells # 0.0 Sodium Level 139 Potassium Level 3.7 Chloride Level 105 Carbon Dioxide Level 21 Anion Gap 17 H Blood Urea Nitrogen 10 Creatinine 0.62 Glucose Level 200 # Calcium Level 7.9 L Medications Current Medications Acetaminophen (Tylenol Tab) 650 mg Q6H PRN PO PAIN AND OR ELEVATED TEMP Last administered on 06/05/17 14:51; Admin Dose 650 MG; Start 06/03/17 at 17:00 Morphine Sulfate (morphine) 2 mg Q4H PRN IV PAIN LEVEL 6-10 Last administered on 06/06/17 08:39; Admin Dose 2 MG; Start 06/03/17 at 17:00 Ondansetron HCl (Zofran Inj) 4 mg Q6 PRN IV NAUSEA AND/OR VOMITING; Start at 17:00 Famotidine (Pepcid) 20 mg BID PO Last administered on 06/06/17 08:28; Admin Dose 20 MG; Start 06/03/17 at 21:00 Acetaminophen/ Hydrocodone Bitart 1 tab 1 tab Q4H PRN PO PAIN LEVEL 6-10 Last administered on 06/05/17 01:48; Admin Dose 1 TAB; Start 06/04/17 at 04:15 Ceftriaxone Sodium 50 ml @ 100 mls/hr Q24H IVPB Last administered on 16:34; Admin Dose 100 MLS/HR; Start 06/04/17 at 16:30 Vancomycin HCl/ Sodium Chloride (Vancocin/NS) 250 ml @ 83.333 mls/ hr Q8H IVPB Last administered on 06/06/17 12:49; Admin Dose 83.333 MLS/HR; Start at 18:00 Miscellaneous Information (*Rx Drug Level Order Reminder*) 1 ONCE ONCE XX ; Start 06/07/17 at 01:00; Stop 06/07/17 at 01:01 Assessment/Plan Chief Complaint/Hosp Course No acute changes, awake, looks comfortable, no fevers Abx: Vanco Rocephin GENERAL: The patient is awake, alert, in no acute distress. HEENT: Pupils equal, round, reactive to light. NECK: Supple HEART: S1, S2, regular rate and rhythm. LUNGS: Clear to auscultate bilaterally. ABDOMEN: Soft, nontender, nondistended,+ normoactive bowel sounds. EXTREMITIES: Left lower extremity with edema/erythema Assessment: 1. L foot cellulitis, septic arthritis==> fluid cx + staph from another facility , s/p i&d 06/05/17 2. Cirrhosis 3. Hx ETOH 4. Anemia Plan: Remains stable, continue abx, keep LLE elevated, f/u intraoperative cx's, podiatry rec-s [facility] staff Problems: GLENDA SOLIS NP Jun 06, 2017 14:33
[2017-06-06] MEDS: CEFTRIAXONE 1 GM/50 ML (PMX) 50 ML IVPB SCH (17:20)
[2017-06-06 19:50] VITALS: BP 129/70; RESP 20
[2017-06-07 02:20] VITALS: BP 146/73; RESP 16
[2017-06-07] MEDS: VANCOMYCIN 1.25 GM in SOD CHLORIDE 0.9% 250 ML IVPB SCH ×3 (02:29→17:34)
[2017-06-07 06:17] LABS: BASOPHILS % 0.1 % (0.0-2.0); HEMATOCRIT 31.4 % (42.0-52.0); HEMOGLOBIN 10.1 g/dl (14.0-18.0); LYMPHOCYTES # 0.7 10^3/ul (0.8-2.9); MEAN CORPUSCULAR HEMOGLOBIN 32.4 pg (29.0-33.0); MEAN CORPUSCULAR HGB CONC 32.2 g/dl (32.0-37.0); MEAN CORPUSCULAR VOLUME 100.6 fl (82.0-101.0); MEAN PLATELET VOLUME 12.2 fl (7.4-10.4); MONOCYTE # 1.1 10^3/ul (0.3-0.9); MONOCYTES % 13.4 % (0.0-11.0); NEUTROPHIL # 6.6 10^3/ul (1.6-7.5); NEUTROPHILS % 77.6 % (39.0-77.0); PLATELET COUNT 102 10^3/UL (140-415); RED BLOOD COUNT 3.12 10^6/ul (4.70-6.10); RED CELL DISTRIBUTION WIDTH 17.1 % (11.5-14.5); WHITE BLOOD COUNT 8.5 10^3/ul (4.8-10.8)
[2017-06-07 06:54] LABS: CALCIUM 8.3 mg/dl (8.4-10.2); CREATININE 0.65 mg/dl (0.61-1.24)
[2017-06-07 08:00] VITALS: BP 163/79; RESP 18
[2017-06-07] MEDS: FAMOTIDINE 20 MG TAB PO SCH ×2 (08:40→20:16)
[2017-06-07] MEDS: HYDROCODONE/APAP (5/325) TAB PO PRN (08:40)
[2017-06-07] MEDS: morphine 2 MG INJ IV PRN (11:04)
--- NOTE | 2017-06-07 11:27 | PN ---
Date/Time of Note Date/Time of Note DATE: 06/07/17 TIME: 11:26 Assessment/Plan VTE Prophylaxis VTE Prophylaxis Intervention: ambulation Lines/Catheters IV [facility] Type (from [facility]): Saline Lock Urinary Cath still in place: No Assessment/Plan Chief Complaint/Hosp Course 1. Left ankle septic arthritis, cx from [facility] +staph 2. ETOH Cirrhosis 3. Thrombocytopenia likely due to cirrhosis Problems: Assessment/Plan 1. continue a/b 2. Optimization kidney function Subjective 24 Hr Interval Summary Constitutional: improved, no complaints Musculoskeletal: bone/joint pain (left ankle) Exam/Review of Systems Vital Signs Vitals Vital Signs Date Time Temp Pulse Resp B/P Pulse Ox O2 Delivery O2 Flow Rate FiO2 06/07/17 08:00 97.8 60 18 163/79 98 06/05/17 21:45 Room Air Intake and Output 06/06/17 06/06/17 06/07/17 15:00 23:00 07:00 Intake Total 1790 ml 1200 ml Output Total 1250 ml Balance 1790 ml -50 ml Exam Constitutional: alert, oriented Respiratory: clear to auscultation Cardiovascular: regular rate and rhythm Gastrointestinal: soft Results Result Diagram: 06/07/17 0505 06/07/17 0505 Results 24 hrs Laboratory Tests Test 06/07/17 01:00 06/07/17 05:05 Vancomycin Level Trough 11.8 White Blood Count 8.5 # Red Blood Count 3.12 L Hemoglobin 10.1 L Hematocrit 31.4 L Mean Corpuscular Volume 100.6 Mean Corpuscular Hemoglobin 32.4 Mean Corpuscular Hemoglobin Concent 32.2 Red Cell Distribution Width 17.1 H Platelet Count 102 #L Mean Platelet Volume 12.2 H Neutrophils % 77.6 H Lymphocytes % 8.0 L Monocytes % 13.4 H Eosinophils % 0.0 Basophils % 0.1 Nucleated Red Blood Cells % 0.0 Neutrophils # 6.6 Lymphocytes # 0.7 L Monocytes # 1.1 H Eosinophils # 0.0 Basophils # 0.0 Nucleated Red Blood Cells # 0.0 Sodium Level 140 Potassium Level 4.0 Chloride Level 109 Carbon Dioxide Level 20 L Anion Gap 15 Blood Urea Nitrogen 12 Creatinine 0.65 Glucose Level 139 # Calcium Level 8.3 L Medications Medications Current Medications Acetaminophen (Tylenol Tab) 650 mg Q6H PRN PO PAIN AND OR ELEVATED TEMP Last administered on 06/05/17 14:51; Admin Dose 650 MG; Start 06/03/17 at 17:00 Morphine Sulfate (morphine) 2 mg Q4H PRN IV PAIN LEVEL 6-10 Last administered on 06/07/17 11:04; Admin Dose 2 MG; Start 06/03/17 at 17:00 Ondansetron HCl (Zofran Inj) 4 mg Q6 PRN IV NAUSEA AND/OR VOMITING; Start at 17:00 Famotidine (Pepcid) 20 mg BID PO Last administered on 06/07/17 08:40; Admin Dose 20 MG; Start 06/03/17 at 21:00 Acetaminophen/ Hydrocodone Bitart 1 tab 1 tab Q4H PRN PO PAIN LEVEL 6-10 Last administered on 06/07/17 08:40; Admin Dose 1 TAB; Start 06/04/17 at 04:15 Ceftriaxone Sodium 50 ml @ 100 mls/hr Q24H IVPB Last administered on 17:20; Admin Dose 100 MLS/HR; Start 06/04/17 at 16:30 Vancomycin HCl/ Sodium Chloride (Vancocin/NS) 250 ml @ 83.333 mls/ hr Q8H IVPB Last administered on 06/07/17 11:02; Admin Dose 83.333 MLS/HR; Start at 18:00 ASHANTI MARTINES Jun 07, 2017 11:27
[2017-06-07 14:00] VITALS: BP 137/77; RESP 18
[2017-06-07] MEDS: CEFTRIAXONE 1 GM/50 ML (PMX) 50 ML IVPB SCH (15:57)
--- NOTE | 2017-06-07 19:17 | CONS ---
Date/Time of Note Date/Time of Note DATE: 06/07/17 TIME: 19:11 Assessment/Plan Assessment/Plan Chief Complaint/Hosp Course ID PROGRESS NOTE CURRENT ABX: =>Vanco IV + Ceftriaxone 24H INTERVAL SUMMARY * Awake, no complaints * Received call from nurse that BCx (+)GNR-> Pending ? * However this is not confirmed in the micro results> Will check if this cx from prior facility * WOUND CULTURE Preliminary Organism 1 STAPHYLOCOCCUS AUREUS QUANTITY SCANT GROWTH pecimen: [id number] Status: Resulted Faizan: 06/04/17 Rcvd: Source: BLOOD Sp Descrip: Procedure Result Microbiology BLOOD CULTURE Preliminary NO GROWTH AFTER 3 DAYS EXAM GEN: VSS, NAD HEENT: Unremarkable NECK: supple CVS: RRR, S1 and S2 CHEST: Equal chest rise bilaterally without dyspnea on observation ABD: Soft, NT, EXT: warm, moves extremities, foot DSG c/d/i SKIN: No rash, no diaphoresis ID ASSESSMENT 47 yo M admit with: 1. L foot cellulitis, septic arthritis==> fluid cx + staph from another facility , s/p i&d 06/05/17 2. Cirrhosis 3. Hx ETOH 4. Anemia INVASIVES: PIV ABX ALLERGY: KNDA CURRENT ABX: =>Vanco IV + Ceftriaxone ID RECOMMENDATIONS 1. Plan: Remains stable, continue abx, keep LLE elevated, f/u intraoperative cx' s, podiatry rec-s 2. Received call from nurse that BCx (+)GNR-> Pending ? => will f/u with lab tomorrow, micro is closed * However this is not confirmed in the micro results> Will check if this cx from prior facility * 06/04/17 BLOOD CULTURE Preliminary NO GROWTH AFTER 3 DAYS Problems: Consultation Date/Type/Reason Admit Date/Time Jun 03, 2017 at 16:30 Initial Consult Date 06/03/17 Type of Consultation: ID Exam/Review of Systems Vital Signs Vitals Vital Signs Date Time Temp Pulse Resp B/P Pulse Ox O2 Delivery O2 Flow Rate FiO2 06/07/17 08:00 97.8 60 18 163/79 98 06/05/17 21:45 Room Air Intake and Output 06/06/17 06/06/17 06/07/17 15:00 23:00 07:00 Intake Total 1790 ml 1200 ml Output Total 1250 ml Balance 1790 ml -50 ml Results Result Diagram: 06/07/17 0505 06/07/17 0505 Results 24 hrs Laboratory Tests Test 06/07/17 01:00 06/07/17 05:05 Vancomycin Level Trough 11.8 White Blood Count 8.5 # Red Blood Count 3.12 L Hemoglobin 10.1 L Hematocrit 31.4 L Mean Corpuscular Volume 100.6 Mean Corpuscular Hemoglobin 32.4 Mean Corpuscular Hemoglobin Concent 32.2 Red Cell Distribution Width 17.1 H Platelet Count 102 #L Mean Platelet Volume 12.2 H Neutrophils % 77.6 H Lymphocytes % 8.0 L Monocytes % 13.4 H Eosinophils % 0.0 Basophils % 0.1 Nucleated Red Blood Cells % 0.0 Neutrophils # 6.6 Lymphocytes # 0.7 L Monocytes # 1.1 H Eosinophils # 0.0 Basophils # 0.0 Nucleated Red Blood Cells # 0.0 Sodium Level 140 Potassium Level 4.0 Chloride Level 109 Carbon Dioxide Level 20 L Anion Gap 15 Blood Urea Nitrogen 12 Creatinine 0.65 Glucose Level 139 # Calcium Level 8.3 L Medications Medications Current Medications Acetaminophen (Tylenol Tab) 650 mg Q6H PRN PO PAIN AND OR ELEVATED TEMP Last administered on 06/05/17 14:51; Admin Dose 650 MG; Start 06/03/17 at 17:00 Morphine Sulfate (morphine) 2 mg Q4H PRN IV PAIN LEVEL 6-10 Last administered on 06/07/17 11:04; Admin Dose 2 MG; Start 06/03/17 at 17:00 Ondansetron HCl (Zofran Inj) 4 mg Q6 PRN IV NAUSEA AND/OR VOMITING; Start at 17:00 Famotidine (Pepcid) 20 mg BID PO Last administered on 06/07/17 08:40; Admin Dose 20 MG; Start 06/03/17 at 21:00 Acetaminophen/ Hydrocodone Bitart 1 tab 1 tab Q4H PRN PO PAIN LEVEL 6-10 Last administered on 06/07/17 08:40; Admin Dose 1 TAB; Start 06/04/17 at 04:15 Ceftriaxone Sodium 50 ml @ 100 mls/hr Q24H IVPB Last administered on 15:57; Admin Dose 100 MLS/HR; Start 06/04/17 at 16:30 Vancomycin HCl/ Sodium Chloride (Vancocin/NS) 250 ml @ 83.333 mls/ hr Q8H IVPB Last administered on 06/07/17 17:34; Admin Dose 83.333 MLS/HR; Start at 18:00 GANESH MANCILLA NP Jun 07, 2017 19:17
[2017-06-07 20:00] VITALS: BP 148/86; RESP 20
[2017-06-08] MEDS: VANCOMYCIN 1.25 GM in SOD CHLORIDE 0.9% 250 ML IVPB SCH ×3 (01:19→18:24)
[2017-06-08] MEDS: HYDROCODONE/APAP (5/325) TAB PO PRN ×3 (01:21→21:35)
[2017-06-08 02:00] VITALS: BP 159/90; RESP 20
[2017-06-08 05:20] LABS: BASOPHILS % 0.3 % (0.0-2.0); EOSINOPHILS % 0.2 % (0.0-7.0); HEMATOCRIT 32.7 % (42.0-52.0); LYMPHOCYTES % 15.7 % (15.0-51.0); MEAN CORPUSCULAR HGB CONC 33.6 g/dl (32.0-37.0); MEAN CORPUSCULAR VOLUME 100.9 fl (82.0-101.0); MEAN PLATELET VOLUME 10.8 fl (7.4-10.4); MONOCYTE # 0.9 10^3/ul (0.3-0.9); MONOCYTES % 14.7 % (0.0-11.0); NEUTROPHIL # 4.2 10^3/ul (1.6-7.5); PLATELET COUNT 118 10^3/UL (140-415); RED BLOOD COUNT 3.24 10^6/ul (4.70-6.10); WHITE BLOOD COUNT 6.1 10^3/ul (4.8-10.8)
[2017-06-08 05:56] LABS: CALCIUM 8.5 mg/dl (8.4-10.2); CREATININE 0.68 mg/dl (0.61-1.24); POTASSIUM 3.9 mmol/L (3.5-5.1)
[2017-06-08] MEDS: morphine 2 MG INJ IV PRN ×3 (07:58→20:29)
[2017-06-08 08:00] VITALS: BP 132/84; RESP 19
[2017-06-08] MEDS: FAMOTIDINE 20 MG TAB PO SCH ×2 (09:24→20:29)
--- NOTE | 2017-06-08 11:27 | PN ---
Date/Time of Note Date/Time of Note DATE: 06/08/17 TIME: 11:25 Assessment/Plan VTE Prophylaxis VTE Prophylaxis Intervention: contraindicated Lines/Catheters IV [facility] Type (from [facility] Saline Lock Urinary Cath still in place: No Assessment/Plan Chief Complaint/Hosp Course 47 y/o with # Left ankle septic arthritis, cx from [facility] +staph and Gram stain + staph aureus # Low grade fevers secondary #1 # ETOH Cirrhosis # Thrombocytopenia likely due to cirrhosis Recs - c/w Vancomycin/rocephin - Pending ID recs - Pain control - Pt will likley need Picc line - Labs am Problems: Subjective 24 Hr Interval Summary Free Text/Dictation Overall feels better as able to move his foot Exam/Review of Systems Vital Signs Vitals Vital Signs Date Time Temp Pulse Resp B/P Pulse Ox O2 Delivery O2 Flow Rate FiO2 06/08/17 08:00 97.7 64 19 132/84 99 06/05/17 21:45 Room Air Intake and Output 06/07/17 06/07/17 06/08/17 15:00 23:00 07:00 Intake Total 300 ml 850 ml Output Total 1200 ml Balance 300 ml -350 ml Exam GEN: VSS, NAD HEENT: Unremarkable NECK: supple CVS: RRR, S1 and S2 CHEST: Equal chest rise bilaterally ABD: Soft, NT, EXT: warm, moves extremities, foot DSG c/d/i SKIN: No rash, no diaphoresis Results Result Diagram: 06/08/17 0450 06/08/17 0450 Results 24 hrs Laboratory Tests Test 06/08/17 04:50 White Blood Count 6.1 # Red Blood Count 3.24 L Hemoglobin 11.0 L Hematocrit 32.7 L Mean Corpuscular Volume 100.9 Mean Corpuscular Hemoglobin 34.0 H Mean Corpuscular Hemoglobin Concent 33.6 Red Cell Distribution Width 17.0 H Platelet Count 118 L Mean Platelet Volume 10.8 H Neutrophils % 68.0 Lymphocytes % 15.7 Monocytes % 14.7 H Eosinophils % 0.2 Basophils % 0.3 Nucleated Red Blood Cells % 0.0 Neutrophils # 4.2 Lymphocytes # 1.0 Monocytes # 0.9 Eosinophils # 0.0 Basophils # 0.0 Nucleated Red Blood Cells # 0.0 Sodium Level 140 Potassium Level 3.9 Chloride Level 107 Carbon Dioxide Level 21 Anion Gap 16 Blood Urea Nitrogen 14 Creatinine 0.68 Glucose Level 124 Calcium Level 8.5 Medications Medications Current Medications Acetaminophen (Tylenol Tab) 650 mg Q6H PRN PO PAIN AND OR ELEVATED TEMP Last administered on 06/05/17 14:51; Admin Dose 650 MG; Start 06/03/17 at 17:00 Morphine Sulfate (morphine) 2 mg Q4H PRN IV PAIN LEVEL 6-10 Last administered on 06/08/17 07:58; Admin Dose 2 MG; Start 06/03/17 at 17:00 Ondansetron HCl (Zofran Inj) 4 mg Q6 PRN IV NAUSEA AND/OR VOMITING; Start at 17:00 Famotidine (Pepcid) 20 mg BID PO Last administered on 06/08/17 09:24; Admin Dose 20 MG; Start 06/03/17 at 21:00 Acetaminophen/ Hydrocodone Bitart 1 tab 1 tab Q4H PRN PO PAIN LEVEL 6-10 Last administered on 06/08/17 09:27; Admin Dose 1 TAB; Start 06/04/17 at 04:15 Ceftriaxone Sodium 50 ml @ 100 mls/hr Q24H IVPB Last administered on 15:57; Admin Dose 100 MLS/HR; Start 06/04/17 at 16:30 Vancomycin HCl/ Sodium Chloride (Vancocin/NS) 250 ml @ 83.333 mls/ hr Q8H IVPB Last administered on 06/08/17 09:24; Admin Dose 83.333 MLS/HR; Start at 18:00 SHAYY MCCABE MD Jun 08, 2017 11:27
[2017-06-08 14:00] VITALS: BP 126/80; RESP 18
--- NOTE | 2017-06-08 16:02 | CONS ---
Date/Time of Note Date/Time of Note DATE: 06/08/17 TIME: 15:31 Assessment/Plan Assessment/Plan Chief Complaint/Hosp Course ID PROGRESS NOTE CURRENT ABX: =>Vanco IV + Ceftriaxone 24H INTERVAL SUMMARY * Doing well, resting comfortable, no fevers, WBC normal * 06/05/17 LEFT ANKLE I&D WOUND CULTURE Final Organism 1 STAPHYLOCOCCUS AUREUS QUANTITY SCANT GROWTH No growth after 1 day S AUREUS M.I.C. RX --------- --- CEFAZOLIN S CIPROFLOXACIN <=0.5 S CLINDAMYCIN <=0.25 S DOXYCYCLINE S ERYTHROMYCIN <=0.25 S LEVOFLOXACIN 0.25 S OXACILLIN <=0.25 S PENICILLIN-G >=0.5 R RIFAMPIN <=0.5 S VANCOMYCIN <=0.5 S TRIMETHOPRIM/SULFAMETHOXAZOLE <=10 S * Received call from nurse that BCx (+)GNR-> Pending ? * However this is not confirmed in the micro results> Will check if this cx from prior facility * WOUND CULTURE Preliminary Organism 1 STAPHYLOCOCCUS AUREUS QUANTITY SCANT GROWTH pecimen: [id number] Status: Resulted Faizan: 06/04/17 Rcvd: Source: BLOOD Sp Descrip: Procedure Result Microbiology BLOOD CULTURE Preliminary NO GROWTH AFTER 3 DAYS EXAM GEN: VSS, NAD HEENT: Unremarkable NECK: supple CVS: RRR, S1 and S2 CHEST: Equal chest rise bilaterally without dyspnea on observation ABD: Soft, NT, EXT: warm, moves extremities, foot DSG c/d/i SKIN: No rash, no diaphoresis ID ASSESSMENT 47 yo M admit with: 1. L foot cellulitis, septic arthritis * 05/31/17 joint aspiration @ [facility]: (+)Staph Aureus * 06/03/17 Joint aspiration @ [facility]: -> 3cc purulent serosanguineous fluid aspirated sent to micro => RESULTS NOT KNOWN * 06/05/17 Left ankle arthroscopic I&D, Dr. Hurley @ [facility] WOUND CULTURE Final Organism 1 STAPHYLOCOCCUS AUREUS / QUANTITY SCANT GROWTH 2. Cirrhosis 3. Hx ETOH 4. Anemia INVASIVES: PIV ABX ALLERGY: KNDA CURRENT ABX: =>Vanco IV + Ceftriaxone ID RECOMMENDATIONS 1. Ceftriaxone 2gm IVPB daily x 4- weeks = FDA APPROVED RECOMMENDATION * Per [place] Guide to ABX Management => * Ceftriaxone found to be equivalent to Oxacillin for Tx of MSSA osteoarticular infections * Consider PICC Line Placement; although Ceftriaxone is NOT a vesicant can go PIV; HH prefers PICC Line * NON-FDA Approved Alternative PO regimes = Per [place] Guide to ABX Management => NOT RECOMMENDED unless there is a contraindication to IV ABX of choice Rx * Zyvox 600mg PO BID x 28 days, or * Levaquin 750mg po daily + Rifampin 600mg po daily x 28 days, or * PO Bactrim DS 1 TAB Q12 x 28 days 2. Received call from nurse that BCx (+)GNR-> Pending ? => will f/u with lab tomorrow, micro is closed * However this is not confirmed in the micro results> Will check if this cx from prior facility * 06/04/17 BLOOD CULTURE Preliminary NO GROWTH AFTER 3 DAYS 3. DC PLANNING ORDER PLACED TO [employer]: * WHEN CLEARED FOR DC HOME BY PRIMARY => PATIENT MAY DC HOME ON * 1. CEFTRIAXONE 2 GM IVPB DAILY TO COMPLETE 28 DAY COURSE START DATE: 06/04/17 - 07/02/17 last date * 2. DC Vanco IV upon discharge from inpatient facility . Problems: Consultation Date/Type/Reason Admit Date/Time Jun 03, 2017 at 16:30 Initial Consult Date 06/03/17 Type of Consultation: ID Exam/Review of Systems Vital Signs Vitals Vital Signs Date Time Temp Pulse Resp B/P Pulse Ox O2 Delivery O2 Flow Rate FiO2 06/08/17 14:00 98.1 78 18 126/80 99 06/05/17 21:45 Room Air Intake and Output 06/07/17 06/07/17 06/08/17 15:00 23:00 07:00 Intake Total 300 ml 850 ml Output Total 1200 ml Balance 300 ml -350 ml Results Result Diagram: 06/08/17 0450 06/08/17 0450 Results 24 hrs Laboratory Tests Test 06/08/17 04:50 White Blood Count 6.1 # Red Blood Count 3.24 L Hemoglobin 11.0 L Hematocrit 32.7 L Mean Corpuscular Volume 100.9 Mean Corpuscular Hemoglobin 34.0 H Mean Corpuscular Hemoglobin Concent 33.6 Red Cell Distribution Width 17.0 H Platelet Count 118 L Mean Platelet Volume 10.8 H Neutrophils % 68.0 Lymphocytes % 15.7 Monocytes % 14.7 H Eosinophils % 0.2 Basophils % 0.3 Nucleated Red Blood Cells % 0.0 Neutrophils # 4.2 Lymphocytes # 1.0 Monocytes # 0.9 Eosinophils # 0.0 Basophils # 0.0 Nucleated Red Blood Cells # 0.0 Sodium Level 140 Potassium Level 3.9 Chloride Level 107 Carbon Dioxide Level 21 Anion Gap 16 Blood Urea Nitrogen 14 Creatinine 0.68 Glucose Level 124 Calcium Level 8.5 Medications Medications Current Medications Acetaminophen (Tylenol Tab) 650 mg Q6H PRN PO PAIN AND OR ELEVATED TEMP Last administered on 06/05/17 14:51; Admin Dose 650 MG; Start 06/03/17 at 17:00 Morphine Sulfate (morphine) 2 mg Q4H PRN IV PAIN LEVEL 6-10 Last administered on 06/08/17 13:20; Admin Dose 2 MG; Start 06/03/17 at 17:00 Ondansetron HCl (Zofran Inj) 4 mg Q6 PRN IV NAUSEA AND/OR VOMITING; Start at 17:00 Famotidine (Pepcid) 20 mg BID PO Last administered on 06/08/17 09:24; Admin Dose 20 MG; Start 06/03/17 at 21:00 Acetaminophen/ Hydrocodone Bitart 1 tab 1 tab Q4H PRN PO PAIN LEVEL 6-10 Last administered on 06/08/17 09:27; Admin Dose 1 TAB; Start 06/04/17 at 04:15 Ceftriaxone Sodium 50 ml @ 100 mls/hr Q24H IVPB Last administered on 15:57; Admin Dose 100 MLS/HR; Start 06/04/17 at 16:30 Vancomycin HCl/ Sodium Chloride (Vancocin/NS) 250 ml @ 83.333 mls/ hr Q8H IVPB Last administered on 06/08/17 09:24; Admin Dose 83.333 MLS/HR; Start at 18:00 Miscellaneous Information (*Rx Drug Level Order Reminder*) VANCOMYCIN TROUGH AT 0900 ONCE ONCE XX ; Start 06/09/17 at 09:00; Stop 06/09/17 at 09:01 GANESH MANCILLA NP Jun 08, 2017 15:41
[2017-06-08] MEDS: CEFTRIAXONE 2 GM/50 ML (PMX) 50 ML IVPB SCH (17:34)
[2017-06-08 20:40] VITALS: BP 156/85; RESP 18
[2017-06-09 02:12] VITALS: BP 136/86; RESP 18
[2017-06-09] MEDS: VANCOMYCIN 1.25 GM in SOD CHLORIDE 0.9% 250 ML IVPB SCH ×2 (02:44→11:13)
[2017-06-09] MEDS: morphine 2 MG INJ IV PRN ×2 (04:42→08:55)
[2017-06-09 05:44] LABS: BASOPHIL # 0.1 10^3/ul (0.0-0.1); BASOPHILS % 0.9 % (0.0-2.0); EOSINOPHILS # 0.1 10^3/ul (0.0-0.5); EOSINOPHILS % 0.9 % (0.0-7.0); HEMATOCRIT 36.9 % (42.0-52.0); HEMOGLOBIN 11.8 g/dl (14.0-18.0); LYMPHOCYTES # 1.6 10^3/ul (0.8-2.9); LYMPHOCYTES % 23.5 % (15.0-51.0); MEAN CORPUSCULAR HEMOGLOBIN 32.2 pg (29.0-33.0); MEAN CORPUSCULAR VOLUME 100.8 fl (82.0-101.0); MEAN PLATELET VOLUME 12.2 fl (7.4-10.4); MONOCYTES % 14.6 % (0.0-11.0); NEUTROPHIL # 3.9 10^3/ul (1.6-7.5); NEUTROPHILS % 58.2 % (39.0-77.0); PLATELET COUNT 114 10^3/UL (140-415); RED BLOOD COUNT 3.66 10^6/ul (4.70-6.10); RED CELL DISTRIBUTION WIDTH 16.9 % (11.5-14.5); WHITE BLOOD COUNT 6.7 10^3/ul (4.8-10.8)
[2017-06-09] MEDS: HYDROCODONE/APAP (5/325) TAB PO PRN ×3 (05:55→14:41)
[2017-06-09 07:55] VITALS: BP 139/88; RESP 20
[2017-06-09] MEDS: FAMOTIDINE 20 MG TAB PO SCH ×2 (08:50→21:02)
[2017-06-09] MEDS ORDERED: morphine 4 MG/ML VIAL IV PRN (11:00)
[2017-06-09] MEDS: morphine 4 MG/ML VIAL IV PRN ×2 (11:14→21:01)
[2017-06-09 14:40] VITALS: BP 175/105; RESP 22
--- NOTE | 2017-06-09 15:03 | CONS ---
Date/Time of Note Date/Time of Note DATE: 06/09/17 TIME: 15:02 Consult Date/Type/Reason Admit Date/Time Jun 03, 2017 at 16:30 Initial Consult Date 06/03/17 Type of Consultation: ID Objective Vital Signs Date Time Temp Pulse Resp B/P Pulse Ox O2 Delivery O2 Flow Rate FiO2 06/09/17 14:40 98.1 87 22 175/105 98 06/05/17 21:45 Room Air Intake and Output 06/08/17 06/08/17 06/09/17 15:00 23:00 07:00 Intake Total 250 ml 1620 ml 700 ml Output Total 700 ml 850 ml Balance 250 ml 920 ml -150 ml Results/Medications Result Diagram: 06/09/17 0501 06/08/17 0450 Results 24 hrs Laboratory Tests Test 06/09/17 05:01 06/09/17 09:18 White Blood Count 6.7 Red Blood Count 3.66 L Hemoglobin 11.8 L Hematocrit 36.9 L Mean Corpuscular Volume 100.8 Mean Corpuscular Hemoglobin 32.2 Mean Corpuscular Hemoglobin Concent 32.0 Red Cell Distribution Width 16.9 H Platelet Count 114 L Mean Platelet Volume 12.2 H Neutrophils % 58.2 Lymphocytes % 23.5 Monocytes % 14.6 H Eosinophils % 0.9 Basophils % 0.9 Nucleated Red Blood Cells % 0.0 Neutrophils # 3.9 Lymphocytes # 1.6 Monocytes # 1.0 H Eosinophils # 0.1 Basophils # 0.1 Nucleated Red Blood Cells # 0.0 Vancomycin Level Trough 14.0 Medications Current Medications Acetaminophen (Tylenol Tab) 650 mg Q6H PRN PO PAIN AND OR ELEVATED TEMP Last administered on 06/05/17 14:51; Admin Dose 650 MG; Start 06/03/17 at 17:00 Morphine Sulfate (morphine) 2 mg Q4H PRN IV PAIN Last administered on 08:55; Admin Dose 2 MG; Start 06/03/17 at 17:00 Ondansetron HCl (Zofran Inj) 4 mg Q6 PRN IV NAUSEA AND/OR VOMITING; Start at 17:00 Famotidine (Pepcid) 20 mg BID PO Last administered on 06/09/17 08:50; Admin Dose 20 MG; Start 06/03/17 at 21:00 Acetaminophen/ Hydrocodone Bitart 1 tab 1 tab Q4H PRN PO PAIN LEVEL 6-10 Last administered on 06/09/17 14:41; Admin Dose 1 TAB; Start 06/04/17 at 04:15 Ceftriaxone Sodium (Rocephin) 50 ml @ 100 mls/hr Q24H IVPB Last administered on 06/08/17 17:34; Admin Dose 100 MLS/HR; Start 06/08/17 at 17:00; Stop at 16:59 Morphine Sulfate (morphine) 3 mg Q4H PRN IV PAIN LEVEL 1-5; Start 06/09/17 at 11:00 Morphine Sulfate (morphine) 4 mg Q4H PRN IV SEVERE PAIN LEVEL 7-10 Last administered on 06/09/17 11:14; Admin Dose 4 MG; Start 06/09/17 at 11:00 Assessment/Plan Chief Complaint/Hosp Course No acute changes, awake, looks comfortable, no fevers Abx: Rocephin GENERAL: The patient is awake, alert, in no acute distress. HEENT: Pupils equal, round, reactive to light. NECK: Supple HEART: S1, S2, regular rate and rhythm. LUNGS: Clear to auscultate bilaterally. ABDOMEN: Soft, nontender, nondistended,+ normoactive bowel sounds. EXTREMITIES: Left lower extremity with edema/erythema Assessment: 1. L foot cellulitis, septic arthritis==> fluid cx + DOM, s/p i&d 06/05/17 2. Cirrhosis 3. Hx ETOH 4. Anemia Plan: Remains stable, continue abx till 07/02/17, f/u podiatry rec-s [facility] staff Problems: GLENDA SOLIS NP Jun 09, 2017 15:03
[2017-06-09] MEDS: CEFTRIAXONE 2 GM/50 ML (PMX) 50 ML IVPB SCH (16:34)
--- NOTE | 2017-06-09 17:51 | PN ---
Date/Time of Note Date/Time of Note DATE: 06/09/17 TIME: 17:49 Assessment/Plan VTE Prophylaxis VTE Prophylaxis Intervention: other Lines/Catheters IV Catheter Type (from Nrsg): Saline Lock Urinary Cath still in place: No Assessment/Plan Chief Complaint/Hosp Course # Left ankle septic arthritis, cx from [facility] +staph and Gram stain + staph aureus # S/P ANKLE SURGERY # ETOH Cirrhosis # Thrombocytopenia likely due to cirrhosis PLAN ANTIBIOTIC PER ID PAIN MEDS Problems: Subjective 24 Hr Interval Summary Subjective hx not possible: other (FOOT PAIN+) Exam/Review of Systems Vital Signs Vitals Vital Signs Date Time Temp Pulse Resp B/P Pulse Ox O2 Delivery O2 Flow Rate FiO2 06/09/17 14:40 98.1 87 22 175/105 98 06/05/17 21:45 Room Air Intake and Output 06/08/17 06/08/17 06/09/17 15:00 23:00 07:00 Intake Total 250 ml 1620 ml 700 ml Output Total 700 ml 850 ml Balance 250 ml 920 ml -150 ml Exam Neck: supple Respiratory: clear to auscultation Cardiovascular: regular rate and rhythm Gastrointestinal: bowel sounds (+), soft, No ascites Extremities: edema (+) Results Result Diagram: 06/09/17 0501 06/08/17 0450 Results 24 hrs Laboratory Tests Test 06/09/17 05:01 06/09/17 09:18 White Blood Count 6.7 Red Blood Count 3.66 L Hemoglobin 11.8 L Hematocrit 36.9 L Mean Corpuscular Volume 100.8 Mean Corpuscular Hemoglobin 32.2 Mean Corpuscular Hemoglobin Concent 32.0 Red Cell Distribution Width 16.9 H Platelet Count 114 L Mean Platelet Volume 12.2 H Neutrophils % 58.2 Lymphocytes % 23.5 Monocytes % 14.6 H Eosinophils % 0.9 Basophils % 0.9 Nucleated Red Blood Cells % 0.0 Neutrophils # 3.9 Lymphocytes # 1.6 Monocytes # 1.0 H Eosinophils # 0.1 Basophils # 0.1 Nucleated Red Blood Cells # 0.0 Vancomycin Level Trough 14.0 Medications Medications Current Medications Acetaminophen (Tylenol Tab) 650 mg Q6H PRN PO PAIN AND OR ELEVATED TEMP Last administered on 06/05/17t 14:51; Admin Dose 650 MG; Start 06/03/17 at 17:00 Morphine Sulfate (morphine) 2 mg Q4H PRN IV PAIN Last administered on 08:55; Admin Dose 2 MG; Start 06/03/17 at 17:00 Ondansetron HCl (Zofran Inj) 4 mg Q6 PRN IV NAUSEA AND/OR VOMITING; Start at 17:00 Famotidine (Pepcid) 20 mg BID PO Last administered on 06/09/17 08:50; Admin Dose 20 MG; Start 06/03/17 at 21:00 Acetaminophen/ Hydrocodone Bitart 1 tab 1 tab Q4H PRN PO PAIN LEVEL 6-10 Last administered on 06/09/17 14:41; Admin Dose 1 TAB; Start 06/04/17 at 04:15 Ceftriaxone Sodium (Rocephin) 50 ml @ 100 mls/hr Q24H IVPB Last administered on 06/09/17 16:34; Admin Dose 100 MLS/HR; Start 06/08/17 at 17:00; Stop at 16:59 Morphine Sulfate (morphine) 3 mg Q4H PRN IV PAIN LEVEL 1-5; Start 06/09/17 at 11:00 Morphine Sulfate (morphine) 4 mg Q4H PRN IV SEVERE PAIN LEVEL 7-10 Last administered on 06/09/17 11:14; Admin Dose 4 MG; Start 06/09/17 at 11:00 BG CABALLERO MD Jun 09, 2017 17:51
[2017-06-09 20:34] VITALS: BP 143/80; RESP 21
[2017-06-10] MEDS: morphine 4 MG/ML VIAL IV PRN ×4 (02:52→20:25)
[2017-06-10 02:55] VITALS: BP 141/92; RESP 18
[2017-06-10] MEDS: HYDROCODONE/APAP (5/325) TAB PO PRN ×3 (03:31→17:24)
[2017-06-10 08:48] VITALS: BP 171/92; RESP 17
[2017-06-10] MEDS: FAMOTIDINE 20 MG TAB PO SCH ×2 (09:21→20:32)
[2017-06-10 14:00] VITALS: BP 132/64; RESP 18
--- NOTE | 2017-06-10 14:37 | CONS ---
Date/Time of Note Date/Time of Note DATE: 06/10/17 TIME: 14:36 Consult Date/Type/Reason Admit Date/Time Jun 03, 2017 at 16:30 Initial Consult Date 06/03/17 Type of Consultation: ID Objective Vital Signs Date Time Temp Pulse Resp B/P Pulse Ox O2 Delivery O2 Flow Rate FiO2 06/10/17 08:48 98.0 96 17 171/92 97 Intake and Output 06/09/17 06/09/17 06/10/17 15:00 23:00 07:00 Intake Total 250 ml 1440 ml 360 ml Output Total 800 ml 700 ml Balance 250 ml 640 ml -340 ml Results/Medications Result Diagram: 06/09/17 0501 06/08/17 0450 Medications Current Medications Acetaminophen (Tylenol Tab) 650 mg Q6H PRN PO PAIN AND OR ELEVATED TEMP Last administered on 06/05/17 14:51; Admin Dose 650 MG; Start 06/03/17 at 17:00 Morphine Sulfate (morphine) 2 mg Q4H PRN IV PAIN Last administered on 08:55; Admin Dose 2 MG; Start 06/03/17 at 17:00 Ondansetron HCl (Zofran Inj) 4 mg Q6 PRN IV NAUSEA AND/OR VOMITING; Start at 17:00 Famotidine (Pepcid) 20 mg BID PO Last administered on 06/10/17 09:21; Admin Dose 20 MG; Start 06/03/17 at 21:00 Acetaminophen/ Hydrocodone Bitart 1 tab 1 tab Q4H PRN PO PAIN LEVEL 6-10 Last administered on 06/10/17 07:38; Admin Dose 1 TAB; Start 06/04/17 at 04:15 Ceftriaxone Sodium (Rocephin) 50 ml @ 100 mls/hr Q24H IVPB Last administered on 06/09/17 16:34; Admin Dose 100 MLS/HR; Start 06/08/17 at 17:00; Stop at 16:59 Morphine Sulfate (morphine) 3 mg Q4H PRN IV PAIN LEVEL 1-5; Start 06/09/17 at 11:00 Morphine Sulfate (morphine) 4 mg Q4H PRN IV SEVERE PAIN LEVEL 7-10 Last administered on 06/10/17 11:11; Admin Dose 4 MG; Start 06/09/17 at 11:00 Assessment/Plan Chief Complaint/Hosp Course No acute changes, awake, c/o LLE pain, looks comfortable, no fevers Abx: Rocephin GENERAL: The patient is awake, alert, in no acute distress. HEENT: Pupils equal, round, reactive to light. NECK: Supple HEART: S1, S2, regular rate and rhythm. LUNGS: Clear to auscultate bilaterally. ABDOMEN: Soft, nontender, nondistended,+ normoactive bowel sounds. EXTREMITIES: Left lower extremity with edema/erythema Assessment: 1. L foot cellulitis, septic arthritis==> fluid cx + DOM, s/p i&d 06/05/17 2. Cirrhosis 3. Hx ETOH 4. Anemia Plan: Remains stable, continue abx till 07/02/17, f/u podiatry rec-s [facility] staff Problems: GLENDA SOLIS NP Jun 10, 2017 14:37
[2017-06-10] MEDS: CEFTRIAXONE 2 GM/50 ML (PMX) 50 ML IVPB SCH (17:23)
--- NOTE | 2017-06-10 17:32 | PN ---
Date/Time of Note Date/Time of Note DATE: 06/10/17 TIME: 17:31 Assessment/Plan VTE Prophylaxis VTE Prophylaxis Intervention: other Lines/Catheters IV Catheter Type (from Nrs): Saline Lock Urinary Cath still in place: No Assessment/Plan Chief Complaint/Hosp Course # Left ankle septic arthritis, cx from [facility] +staph and Gram stain + staph aureus # S/P ANKLE SURGERY # ETOH Cirrhosis # Thrombocytopenia likely due to cirrhosis PLAN ANTIBIOTIC PER ID PAIN MEDS Problems: Subjective 24 Hr Interval Summary Subjective hx not possible: other (foot pain+) Exam/Review of Systems Vital Signs Vitals Vital Signs Date Time Temp Pulse Resp B/P Pulse Ox O2 Delivery O2 Flow Rate FiO2 06/10/17 14:00 98.8 84 18 132/64 96 Intake and Output 06/09/17 06/09/17 06/10/17 15:00 23:00 07:00 Intake Total 250 ml 1440 ml 360 ml Output Total 800 ml 700 ml Balance 250 ml 640 ml -340 ml Exam Respiratory: clear to auscultation Cardiovascular: regular rate and rhythm Gastrointestinal: bowel sounds (+), soft Extremities: No edema Results Result Diagram: 06/09/17 0501 06/08/17 0450 Medications Medications Current Medications Acetaminophen (Tylenol Tab) 650 mg Q6H PRN PO PAIN AND OR ELEVATED TEMP Last administered on 06/05/17 14:51; Admin Dose 650 MG; Start 06/03/17 at 17:00 Morphine Sulfate (morphine) 2 mg Q4H PRN IV PAIN Last administered on 08:55; Admin Dose 2 MG; Start 06/03/17 at 17:00 Ondansetron HCl (Zofran Inj) 4 mg Q6 PRN IV NAUSEA AND/OR VOMITING; Start at 17:00 Famotidine (Pepcid) 20 mg BID PO Last administered on 06/10/17 09:21; Admin Dose 20 MG; Start 06/03/17 at 21:00 Acetaminophen/ Hydrocodone Bitart 1 tab 1 tab Q4H PRN PO PAIN LEVEL 6-10 Last administered on 06/10/17 17:24; Admin Dose 1 TAB; Start 06/04/17 at 04:15 Ceftriaxone Sodium (Rocephin) 50 ml @ 100 mls/hr Q24H IVPB Last administered on 06/10/17 17:23; Admin Dose 100 MLS/HR; Start 06/08/17 at 17:00; Stop at 16:59 Morphine Sulfate (morphine) 3 mg Q4H PRN IV PAIN LEVEL 1-5; Start 06/09/17 at 11:00 Morphine Sulfate (morphine) 4 mg Q4H PRN IV SEVERE PAIN LEVEL 7-10 Last administered on 06/10/17 11:11; Admin Dose 4 MG; Start 06/09/17 at 11:00 BG CABALLERO MD Jun 10, 2017 17:32
--- NOTE | 2017-06-10 18:47 | PN ---
Date/Time of Note Date/Time of Note DATE: 06/09/17 TIME: 14:44 Assessment/Plan Lines/Catheters IV Catheter Type (from Nrsg): Saline Lock May in Place (from Nrsg): No Assessment/Plan Problems: (1) Left ankle pain (2) Cirrhosis of liver (3) EtOH dependence Assessment/Plan Dressing was changed. Patient's left ankle is significantly improved. As per foot and ankle surgery, patient may be discharged either to a [facility] facility or home with visiting nurse services. My recommendation is psychiatric consultation for patient for evaluation of drug dependence. Subjective 24 Hr Interval Summary Patient is status post left ankle arthroscopy with debridement. Patient reports significant pain and he starts to show reaction as I walked into the room. Patient denies fever and chills today and reports no chest pain or shortness of breath. Constitutional: no complaints Pain Control: moderate Exam/Review of Systems Vital Signs Vitals Vital Signs Date Time Temp Pulse Resp B/P Pulse Ox O2 Delivery O2 Flow Rate FiO2 06/10/17 14:00 98.8 84 18 132/64 96 Intake and Output 06/09/17 06/09/17 06/10/17 15:00 23:00 07:00 Intake Total 250 ml 1440 ml 360 ml Output Total 800 ml 700 ml Balance 250 ml 640 ml -340 ml Exam Free Text/Dictation Patient is laying supine in bed in no acute distress. Dressing present on the left ankle. A dressing was removed and patient started to yell and scream as soon as I got close to his left foot and ankle. After removing of the dressing , the left ankle was examined which showed significant reduction edema. No erythema noted. [place] intact. No pus no malodor and no bleeding. Dorsalis pedis and posterior tibial pulse palpable. Labs reviewed. Results Result Diagram: 06/09/17 0501 06/08/17 0450 CASPER GARCIA DPM Jun 10, 2017 18:47
[2017-06-10 20:18] VITALS: BP 143/86; RESP 18
[2017-06-11 02:43] VITALS: BP 152/82; RESP 18
[2017-06-11] MEDS: morphine 4 MG/ML VIAL IV PRN (03:11)
[2017-06-11] MEDS: HYDROCODONE/APAP (5/325) TAB PO PRN ×2 (05:29→09:31)
[2017-06-11 08:00] VITALS: BP 132/64; RESP 18
[2017-06-11] MEDS: FAMOTIDINE 20 MG TAB PO SCH ×2 (08:59→20:32)
[2017-06-11] MEDS: morphine 2 MG INJ IV PRN (10:14)
[2017-06-11] MEDS ORDERED: HYDROmorphONE 4 MG TAB PO PRN (11:30)
[2017-06-11] MEDS: HYDROmorphONE 2 MG TAB PO PRN (12:34)
--- NOTE | 2017-06-11 13:38 | CONS ---
Date/Time of Note Date/Time of Note DATE: 06/11/17 TIME: 13:37 Consult Date/Type/Reason Admit Date/Time Jun 03, 2017 at 16:30 Initial Consult Date 06/03/17 Type of Consultation: ID Objective Vital Signs Date Time Temp Pulse Resp B/P Pulse Ox O2 Delivery O2 Flow Rate FiO2 06/11/17 08:00 98.8 84 18 132/64 96 Intake and Output 06/10/17 06/10/17 06/11/17 15:00 23:00 07:00 Intake Total 1170 ml 600 ml Output Total 1150 ml 700 ml Balance 20 ml -100 ml Results/Medications Result Diagram: 06/09/17 0501 06/08/17 0450 Medications Current Medications Acetaminophen (Tylenol Tab) 650 mg Q6H PRN PO PAIN AND OR ELEVATED TEMP Last administered on 06/05/17 14:51; Admin Dose 650 MG; Start 06/03/17 at 17:00 Morphine Sulfate (morphine) 2 mg Q4H PRN IV PAIN Last administered on 10:14; Admin Dose 2 MG; Start 06/03/17 at 17:00 Ondansetron HCl (Zofran Inj) 4 mg Q6 PRN IV NAUSEA AND/OR VOMITING; Start at 17:00 Famotidine 20 mg 20 mg BID PO Last administered on 06/11/17 08:59; Admin Dose 20 MG; Start 06/03/17 at 21:00 Ceftriaxone Sodium (Rocephin) 50 ml @ 100 mls/hr Q24H IVPB Last administered on 06/10/17 17:23; Admin Dose 100 MLS/HR; Start 06/08/17 at 17:00; Stop at 16:59 Morphine Sulfate (morphine) 3 mg Q4H PRN IV PAIN LEVEL 1-5; Start 06/09/17 at 11:00 Morphine Sulfate (morphine) 4 mg Q4H PRN IV SEVERE PAIN LEVEL 7-10 Last administered on 06/11/17 03:11; Admin Dose 4 MG; Start 06/09/17 at 11:00 Hydromorphone HCl (Dilaudid) 4 mg Q4H PRN PO PAIN Last administered on 12:34; Admin Dose 4 MG; Start 06/11/17 at 11:30 Clonidine (Catapres) 0.1 mg TID PO Last administered on 06/11/17t 12:33; Admin Dose 0.1 MG; Start 06/11/17 at 13:00 Assessment/Plan Chief Complaint/Hosp Course No acute changes, awake, c/o LLE pain, looks comfortable, no fevers Abx: Rocephin GENERAL: The patient is awake, alert, in no acute distress. HEENT: Pupils equal, round, reactive to light. NECK: Supple HEART: S1, S2, regular rate and rhythm. LUNGS: Clear to auscultate bilaterally. ABDOMEN: Soft, nontender, nondistended,+ normoactive bowel sounds. EXTREMITIES: Left lower extremity with edema/erythema Assessment: 1. L foot cellulitis, septic arthritis==> fluid cx + DOM, s/p i&d 06/05/17 2. Cirrhosis 3. Hx ETOH 4. Anemia Plan: Remains stable, refusing PICC, will change abx to PO Cipro upon dc==> continue till 07/02/17, f/u podiatry rec-s [facility] staff Problems: GLENDA SOLIS NP Jun 11, 2017 13:38
[2017-06-11 14:00] VITALS: BP 150/86; RESP 18
[2017-06-11 14:17] LABS: ALBUMIN 3.6 g/dl (3.3-4.9); ALBUMIN/GLOBULIN RATIO 0.76; BILIRUBIN,INDIRECT 0.6 mg/dl (0-1.1); BILIRUBIN,TOTAL 0.6 mg/dl (0.2-1.3); CALCIUM 8.6 mg/dl (8.4-10.2); CREATININE 0.64 mg/dl (0.61-1.24); POTASSIUM 4.2 mmol/L (3.5-5.1); TOTAL PROTEIN 8.3 g/dl (6.1-8.1)
--- NOTE | 2017-06-11 17:09 | RADRPT ---
PROCEDURE: US Abdomen and Retroperitoneum. CLINICAL INDICATION: Elevated liver function test. TECHNIQUE: Multiple real-time longitudinal and transverse images were acquired of the patient's ab domen and retroperitoneum utilizing a curved array transducer. COMPARISON: No prior studies are available for comparison. FINDINGS: The liver is normal in size and diffusely increased in echogenicity. The liver has a normal smooth surface. There is no focal hepatic lesion. Color Doppler and pulsed Doppler sonography demonstrate n ormal antegrade flow in the portal vein. The gallbladder is normal with no stones or wall thickening. The bile ducts are normal with the common bile duct measuring 5.1 mm in diameter. The spleen is normal in size. There is no focal splenic lesion. The pancreas is not visualized due to overlying bowel gas. There is no free fluid. The right kidney measures 12.1 x 3.7 x 4.9 cm and the left kidney measures 11.2 x 5.6 x 4.9 cm. There is no renal mass or hydronephrosis. There is a nonobstructing 0.4 cm calculus in the lower right kidney and a nonobstructing 0.4 cm calc ulus in the lower left kidney. The abdominal aorta is not dilated. The inferior vena cava is unremarkable. IMPRESSION: 1. Fatty metamorphosis of the liver. 2. Pancreas not visualized. 3. Nonobstructing bilateral renal calculi. 4. Otherwise normal ultrasound of the abdomen and retroperitoneum. RPTAT: QQ .Manuel Cook MD, Date Time Electronically viewed and signed by .Manuel Cook MD, on 06/11/2017 17:09 .R/
[2017-06-11] MEDS: CEFTRIAXONE 2 GM/50 ML (PMX) 50 ML IVPB SCH (17:30)
--- NOTE | 2017-06-11 18:32 | PN ---
Date/Time of Note Date/Time of Note DATE: 06/11/17 TIME: 18:30 Assessment/Plan VTE Prophylaxis VTE Prophylaxis Intervention: other Lines/Catheters IV Catheter Type (from Nrsg): Saline Lock Urinary Cath still in place: No Assessment/Plan Chief Complaint/Hosp Course # Left ankle septic arthritis, cx from [facility] +staph and Gram stain + staph aureus # S/P ANKLE SURGERY # ETOH Cirrhosis # Thrombocytopenia likely due to cirrhosis abn lft htn PLAN ANTIBIOTIC PER ID PAIN MEDS bp meds will need snf Problems: Subjective 24 Hr Interval Summary Subjective hx not possible: other (foot pain+) Exam/Review of Systems Vital Signs Vitals Vital Signs Date Time Temp Pulse Resp B/P Pulse Ox O2 Delivery O2 Flow Rate FiO2 06/11/17 14:00 98.6 84 18 150/86 96 Intake and Output 06/10/17 06/10/17 06/11/17 15:00 23:00 07:00 Intake Total 1170 ml 600 ml Output Total 1150 ml 700 ml Balance 20 ml -100 ml Exam Respiratory: clear to auscultation Cardiovascular: regular rate and rhythm Gastrointestinal: bowel sounds (+), soft Musculoskeletal: joint tenderness Extremities: edema (+) Results Result Diagram: 06/09/17 0501 06/11/17 1337 Results 24 hrs Laboratory Tests Test 06/11/17 13:37 06/11/17 13:40 Sodium Level 132 L Potassium Level 4.2 Chloride Level 99 Carbon Dioxide Level 22 Anion Gap 15 Blood Urea Nitrogen 13 Creatinine 0.64 Glucose Level 103 Calcium Level 8.6 Total Bilirubin 0.6 Direct Bilirubin 0.00 Indirect Bilirubin 0.6 Aspartate Amino Transf (AST/SGOT) 136 H Alanine Aminotransferase (ALT/SGPT) 89 H Alkaline Phosphatase 257 H Total Protein 8.3 H Albumin 3.6 Globulin 4.70 H Albumin/Globulin Ratio 0.76 Hemoglobin A1c 5.0 Medications Medications Current Medications Acetaminophen (Tylenol Tab) 650 mg Q6H PRN PO PAIN AND OR ELEVATED TEMP Last administered on 06/05/17 14:51; Admin Dose 650 MG; Start 06/03/17 at 17:00 Morphine Sulfate (morphine) 2 mg Q4H PRN IV PAIN Last administered on 10:14; Admin Dose 2 MG; Start 06/03/17 at 17:00 Ondansetron HCl (Zofran Inj) 4 mg Q6 PRN IV NAUSEA AND/OR VOMITING; Start at 17:00 Famotidine 20 mg 20 mg BID PO Last administered on 06/11/17 08:59; Admin Dose 20 MG; Start 06/03/17 at 21:00 Ceftriaxone Sodium (Rocephin) 50 ml @ 100 mls/hr Q24H IVPB Last administered on 06/11/17 17:30; Admin Dose 100 MLS/HR; Start 06/08/17 at 17:00; Stop 07/03 at 16:59 Morphine Sulfate (morphine) 3 mg Q4H PRN IV PAIN LEVEL 1-5; Start 06/09/17 at 11:00 Morphine Sulfate (morphine) 4 mg Q4H PRN IV SEVERE PAIN LEVEL 7-10 Last administered on 06/11/17 03:11; Admin Dose 4 MG; Start 06/09/17 at 11:00 Hydromorphone HCl (Dilaudid) 4 mg Q4H PRN PO PAIN Last administered on 12:34; Admin Dose 4 MG; Start 06/11/17 at 11:30 Clonidine (Catapres) 0.1 mg TID PO Last administered on 06/11/17 12:33; Admin Dose 0.1 MG; Start 06/11/17 at 13:00 BG CABALLERO MD Jun 11, 2017 18:32
[2017-06-11 19:34] VITALS: BP 125/78; RESP 16
[2017-06-12 01:58] VITALS: BP 124/69; RESP 16
[2017-06-12 07:03] LABS: ALBUMIN 3.5 g/dl (3.3-4.9); ALBUMIN/GLOBULIN RATIO 0.79; BILIRUBIN,INDIRECT 0.6 mg/dl (0-1.1); BILIRUBIN,TOTAL 0.6 mg/dl (0.2-1.3); CALCIUM 8.7 mg/dl (8.4-10.2); CREATININE 0.66 mg/dl (0.61-1.24); POTASSIUM 4.3 mmol/L (3.5-5.1); TOTAL PROTEIN 7.9 g/dl (6.1-8.1)
[2017-06-12 08:00] VITALS: BP 126/64; RESP 18
[2017-06-12] MEDS: FAMOTIDINE 20 MG TAB PO SCH ×2 (09:14→20:44)
[2017-06-12] MEDS: morphine 4 MG/ML VIAL IV PRN ×2 (09:15→14:52)
[2017-06-12 14:00] VITALS: BP 120/64; RESP 20
--- NOTE | 2017-06-12 14:30 | CONS ---
Date/Time of Note Date/Time of Note DATE: 06/12/17 TIME: 14:29 Consult Date/Type/Reason Admit Date/Time Jun 03, 2017 at 16:30 Initial Consult Date 06/03/17 Type of Consultation: ID Objective Vital Signs Date Time Temp Pulse Resp B/P Pulse Ox O2 Delivery O2 Flow Rate FiO2 06/12/17 08:00 98.6 76 18 126/64 96 Intake and Output 06/11/17 06/11/17 06/12/17 15:00 23:00 07:00 Intake Total 1170 ml 400 ml Output Total 3 ml 300 ml Balance 1167 ml 100 ml Results/Medications Result Diagram: 06/09/17 0501 06/12/17 0459 Results 24 hrs Laboratory Tests Test 06/12/17 04:59 Sodium Level 136 Potassium Level 4.3 Chloride Level 101 Carbon Dioxide Level 23 Anion Gap 16 Blood Urea Nitrogen 15 Creatinine 0.66 Glucose Level 97 Calcium Level 8.7 Total Bilirubin 0.6 Direct Bilirubin 0.00 Indirect Bilirubin 0.6 Aspartate Amino Transf (AST/SGOT) 118 H Alanine Aminotransferase (ALT/SGPT) 77 H Alkaline Phosphatase 239 H Total Protein 7.9 Albumin 3.5 Globulin 4.40 H Albumin/Globulin Ratio 0.79 Medications Current Medications Acetaminophen (Tylenol Tab) 650 mg Q6H PRN PO PAIN AND OR ELEVATED TEMP Last administered on 06/05/17 14:51; Admin Dose 650 MG; Start 06/03/17 at 17:00 Morphine Sulfate (morphine) 2 mg Q4H PRN IV PAIN Last administered on 10:14; Admin Dose 2 MG; Start 06/03/17 at 17:00 Ondansetron HCl (Zofran Inj) 4 mg Q6 PRN IV NAUSEA AND/OR VOMITING; Start at 17:00 Famotidine 20 mg 20 mg BID PO Last administered on 06/12/17 09:14; Admin Dose 20 MG; Start 06/03/17 at 21:00 Ceftriaxone Sodium (Rocephin) 50 ml @ 100 mls/hr Q24H IVPB Last administered on 06/11/17 17:30; Admin Dose 100 MLS/HR; Start 06/08/17 at 17:00; Stop 07/03 at 16:59 Morphine Sulfate (morphine) 3 mg Q4H PRN IV PAIN LEVEL 1-5; Start 06/09/17 at 11:00 Morphine Sulfate (morphine) 4 mg Q4H PRN IV SEVERE PAIN LEVEL 7-10 Last administered on 06/12/17 09:15; Admin Dose 4 MG; Start 06/09/17 at 11:00 Hydromorphone HCl (Dilaudid) 4 mg Q4H PRN PO PAIN Last administered on 12:34; Admin Dose 4 MG; Start 06/11/17 at 11:30 Clonidine (Catapres) 0.1 mg TID PO Last administered on 06/12/17 09:14; Admin Dose 0.1 MG; Start 06/11/17 at 13:00 Assessment/Plan Chief Complaint/Hosp Course No acute changes, looks comfortable, no fevers Abx: Rocephin GENERAL: The patient is awake, alert, in no acute distress. HEENT: Pupils equal, round, reactive to light. NECK: Supple HEART: S1, S2, regular rate and rhythm. LUNGS: Clear to auscultate bilaterally. ABDOMEN: Soft, nontender, nondistended,+ normoactive bowel sounds. EXTREMITIES: Left lower extremity with edema/erythema Assessment: 1. L foot cellulitis, septic arthritis==> fluid cx + DOM, s/p i&d 06/05/17 2. Cirrhosis 3. Hx ETOH 4. Anemia Plan: Remains stable, continue abx till 07/02/17, may change to PO Cipro when dc , f/u podiatry rec-s [facility] staff Problems: GLENDA SOLIS NP Jun 12, 2017 14:30
[2017-06-12 14:36] VITALS: BP 125/69; PULSE 75; RESP 18
[2017-06-12] MEDS: CEFTRIAXONE 2 GM/50 ML (PMX) 50 ML IVPB SCH (17:04)
--- NOTE | 2017-06-12 19:08 | PN ---
Date/Time of Note Date/Time of Note DATE: 06/12/17 TIME: 19:05 Assessment/Plan VTE Prophylaxis VTE Prophylaxis Intervention: other Lines/Catheters IV Catheter Type (from Nrsg): Saline Lock Urinary Cath still in place: No Assessment/Plan Chief Complaint/Hosp Course # Left ankle septic arthritis, cx from [facility] +staph and Gram stain + staph aureus # S/P ANKLE SURGERY # ETOH Cirrhosis # Thrombocytopenia likely due to cirrhosis abn lft htn PLAN ANTIBIOTIC PER ID PAIN MEDS bp meds will need snf POST SURGERY PER DR MCKAY Problems: Subjective 24 Hr Interval Summary Subjective hx not possible: other (D/W DR MCKAY,SURGERY ON ) Exam/Review of Systems Vital Signs Vitals Vital Signs Date Time Temp Pulse Resp B/P Pulse Ox O2 Delivery O2 Flow Rate FiO2 06/12/17 14:36 98.1 75 18 125/69 100 Room Air Intake and Output 06/11/17 06/11/17 06/12/17 15:00 23:00 07:00 Intake Total 1170 ml 400 ml Output Total 3 ml 300 ml Balance 1167 ml 100 ml Exam Respiratory: clear to auscultation Cardiovascular: regular rate and rhythm Gastrointestinal: bowel sounds (+), soft Musculoskeletal: joint tenderness (LEFT FOOT) Results Result Diagram: 06/09/17 0501 06/12/17 0459 Results 24 hrs Laboratory Tests Test 06/12/17 04:59 Sodium Level 136 Potassium Level 4.3 Chloride Level 101 Carbon Dioxide Level 23 Anion Gap 16 Blood Urea Nitrogen 15 Creatinine 0.66 Glucose Level 97 Calcium Level 8.7 Total Bilirubin 0.6 Direct Bilirubin 0.00 Indirect Bilirubin 0.6 Aspartate Amino Transf (AST/SGOT) 118 H Alanine Aminotransferase (ALT/SGPT) 77 H Alkaline Phosphatase 239 H Total Protein 7.9 Albumin 3.5 Globulin 4.40 H Albumin/Globulin Ratio 0.79 Medications Medications Current Medications Acetaminophen (Tylenol Tab) 650 mg Q6H PRN PO PAIN AND OR ELEVATED TEMP Last administered on 06/05/17 14:51; Admin Dose 650 MG; Start 06/03/17 at 17:00 Morphine Sulfate (morphine) 2 mg Q4H PRN IV PAIN Last administered on 10:14; Admin Dose 2 MG; Start 06/03/17 at 17:00 Ondansetron HCl (Zofran Inj) 4 mg Q6 PRN IV NAUSEA AND/OR VOMITING; Start at 17:00 Famotidine 20 mg 20 mg BID PO Last administered on 06/12/17 09:14; Admin Dose 20 MG; Start 06/03/17 at 21:00 Ceftriaxone Sodium (Rocephin) 50 ml @ 100 mls/hr Q24H IVPB Last administered on 06/12/17 17:04; Admin Dose 100 MLS/HR; Start 06/08/17 at 17:00; Stop 07/03 at 16:59 Morphine Sulfate (morphine) 3 mg Q4H PRN IV PAIN LEVEL 1-5; Start 06/09/17 at 11:00 Morphine Sulfate (morphine) 4 mg Q4H PRN IV SEVERE PAIN LEVEL 7-10 Last administered on 06/12/17 14:52; Admin Dose 4 MG; Start 06/09/17 at 11:00 Hydromorphone HCl (Dilaudid) 4 mg Q4H PRN PO PAIN Last administered on 12:34; Admin Dose 4 MG; Start 06/11/17 at 11:30 Clonidine (Catapres) 0.1 mg TID PO Last administered on 06/12/17 14:38; Admin Dose 0.1 MG; Start 06/11/17 at 13:00 BG CABALLERO MD Jun 12, 2017 19:08
[2017-06-12 20:00] VITALS: BP 136/79; RESP 20
[2017-06-12] MEDS: HYDROmorphONE 2 MG TAB PO PRN (20:47)
--- NOTE | 2017-06-12 23:59 | PN ---
Date/Time of Note Date/Time of Note DATE: 06/12/17 TIME: 23:59 Assessment/Plan Lines/Catheters IV Catheter Type (from Nrs): Saline Lock May in Place (from Nrsg): No Assessment/Plan Problems: (1) ETOH abuse (2) Left ankle pain (3) Septic arthritis of ankle Assessment/Plan Plan is intra-articular injection of the left ankle. I have ordered injectables to the bedside. Patient will be seen in house and injection will be done at bedside. Subjective 24 Hr Interval Summary Patient was seen at bedside. Patient is in no acute distress. Patient reports no new adverse events. Patient denies fever, chills, nausea or vomiting. Patient reports significant pain in the left ankle. Patient denies recent trauma. Patient does not report any new problems. Constitutional: no complaints Pain Control: moderate Exam/Review of Systems Vital Signs Vitals Vital Signs Date Time Temp Pulse Resp B/P Pulse Ox O2 Delivery O2 Flow Rate FiO2 06/15/17 20:44 98.2 73 18 112/58 98 06/15/17 14:27 Room Air Intake and Output 06/14/17 06/14/17 06/15/17 15:00 23:00 07:00 Intake Total 910 ml 240 ml Output Total 400 ml Balance 910 ml -160 ml Exam Free Text/Dictation Laying supine in bed in no acute distress Left ankle is tender to palpation Left ankle is tender to range of motion Bandages were removed; elmer intact with no sign of infection Decrease in edema noted No other changes noted on examination Results Result Diagram: 06/15/17 0528 CAPSER GARCIA DPM Jun 12, 2017 23:59
[2017-06-13 02:00] VITALS: BP 122/69; RESP 20
[2017-06-13] MEDS: HYDROmorphONE 2 MG TAB PO PRN ×2 (05:45→16:17)
[2017-06-13 08:00] VITALS: BP 123/79; RESP 18
[2017-06-13] MEDS: FAMOTIDINE 20 MG TAB PO SCH ×2 (09:03→21:08)
--- NOTE | 2017-06-13 12:55 | PN ---
Date/Time of Note Date/Time of Note DATE: 06/13/17 TIME: 12:53 Assessment/Plan VTE Prophylaxis VTE Prophylaxis Intervention: ambulation (c cratches) Lines/Catheters IV Catheter Type (from [facility]): Saline Lock Urinary Cath still in place: No Assessment/Plan Chief Complaint/Hosp Course 1. Left ankle septic arthritis, cx from [facility] +staph 2. ETOH Cirrhosis 3. Thrombocytopenia likely due to cirrhosis Problems: Assessment/Plan 1. continue ab 2. Per podiatry 3. SNF placement Subjective 24 Hr Interval Summary Respiratory: no complaints Gastrointestinal: no complaints Musculoskeletal: bone/joint pain Exam/Review of Systems Vital Signs Vitals Vital Signs Date Time Temp Pulse Resp B/P Pulse Ox O2 Delivery O2 Flow Rate FiO2 06/13/17 08:00 97.4 76 18 123/79 100 06/12/17 14:36 Room Air Intake and Output 06/12/17 06/12/17 06/13/17 15:00 23:00 07:00 Intake Total 890 ml 850 ml Output Total 1000 ml Balance 890 ml -150 ml Exam Constitutional: alert, oriented Eyes: nl conjunctiva ENMT: nl external ears & nose Respiratory: clear to auscultation Cardiovascular: regular rate and rhythm Genitourinary - Male: nl penis Results Result Diagram: 06/09/17 0501 06/12/17 0459 Medications Medications Current Medications Acetaminophen (Tylenol Tab) 650 mg Q6H PRN PO PAIN AND OR ELEVATED TEMP Last administered on 06/05/17 14:51; Admin Dose 650 MG; Start 06/03/17 at 17:00 Morphine Sulfate (morphine) 2 mg Q4H PRN IV PAIN Last administered on 10:14; Admin Dose 2 MG; Start 06/03/17 at 17:00 Ondansetron HCl (Zofran Inj) 4 mg Q6 PRN IV NAUSEA AND/OR VOMITING; Start at 17:00 Famotidine 20 mg 20 mg BID PO Last administered on 06/13/17 09:03; Admin Dose 20 MG; Start 06/03/17 at 21:00 Ceftriaxone Sodium (Rocephin) 50 ml @ 100 mls/hr Q24H IVPB Last administered on 06/12/17 17:04; Admin Dose 100 MLS/HR; Start 06/08/17 at 17:00; Stop 07/03 at 16:59 Morphine Sulfate (morphine) 3 mg Q4H PRN IV PAIN LEVEL 1-5; Start 06/09/17 at 11:00 Morphine Sulfate (morphine) 4 mg Q4H PRN IV SEVERE PAIN LEVEL 7-10 Last administered on 06/12/17 14:52; Admin Dose 4 MG; Start 06/09/17 at 11:00 Hydromorphone HCl (Dilaudid) 4 mg Q4H PRN PO PAIN Last administered on 05:45; Admin Dose 4 MG; Start 06/11/17 at 11:30 Clonidine (Catapres) 0.1 mg TID PO Last administered on 06/13/17 09:03; Admin Dose 0.1 MG; Start 06/11/17 at 13:00 ASHANTI MARTINES Jun 13, 2017 12:55
[2017-06-13 14:00] VITALS: BP 129/72; RESP 18
--- NOTE | 2017-06-13 14:21 | CONS ---
Date/Time of Note Date/Time of Note DATE: 06/13/17 TIME: 14:21 Consult Date/Type/Reason Admit Date/Time Jun 03, 2017 at 16:30 Initial Consult Date 06/03/17 Type of Consultation: ID Objective Vital Signs Date Time Temp Pulse Resp B/P Pulse Ox O2 Delivery O2 Flow Rate FiO2 06/13/17 08:00 97.4 76 18 123/79 100 06/12/17 14:36 Room Air Intake and Output 06/12/17 06/12/17 06/13/17 15:00 23:00 07:00 Intake Total 890 ml 850 ml Output Total 1000 ml Balance 890 ml -150 ml Results/Medications Result Diagram: 06/09/17 0501 06/12/17 0459 Medications Current Medications Acetaminophen (Tylenol Tab) 650 mg Q6H PRN PO PAIN AND OR ELEVATED TEMP Last administered on 06/05/17 14:51; Admin Dose 650 MG; Start 06/03/17 at 17:00 Morphine Sulfate (morphine) 2 mg Q4H PRN IV PAIN Last administered on 10:14; Admin Dose 2 MG; Start 06/03/17 at 17:00 Ondansetron HCl (Zofran Inj) 4 mg Q6 PRN IV NAUSEA AND/OR VOMITING; Start at 17:00 Famotidine 20 mg 20 mg BID PO Last administered on 06/13/17 09:03; Admin Dose 20 MG; Start 06/03/17 at 21:00 Ceftriaxone Sodium (Rocephin) 50 ml @ 100 mls/hr Q24H IVPB Last administered on 06/12/17 17:04; Admin Dose 100 MLS/HR; Start 06/08/17 at 17:00; Stop 07/03 at 16:59 Morphine Sulfate (morphine) 3 mg Q4H PRN IV PAIN LEVEL 1-5; Start 06/09/17 at 11:00 Morphine Sulfate (morphine) 4 mg Q4H PRN IV SEVERE PAIN LEVEL 7-10 Last administered on 06/12/17 14:52; Admin Dose 4 MG; Start 06/09/17 at 11:00 Hydromorphone HCl (Dilaudid) 4 mg Q4H PRN PO PAIN Last administered on 05:45; Admin Dose 4 MG; Start 06/11/17 at 11:30 Clonidine (Catapres) 0.1 mg TID PO Last administered on 06/13/17t 09:03; Admin Dose 0.1 MG; Start 06/11/17 at 13:00 Assessment/Plan Chief Complaint/Hosp Course No acute changes, sleeping, looks comfortable, no fevers Abx: Rocephin GENERAL: The patient is awake, alert, in no acute distress. HEENT: Pupils equal, round, reactive to light. NECK: Supple HEART: S1, S2, regular rate and rhythm. LUNGS: Clear to auscultate bilaterally. ABDOMEN: Soft, nontender, nondistended,+ normoactive bowel sounds. EXTREMITIES: Left lower extremity with edema/erythema Assessment: 1. L foot cellulitis, septic arthritis==> fluid cx + DOM, s/p i&d 06/05/17 2. Cirrhosis 3. Hx ETOH 4. Anemia Plan: Remains stable, continue abx till 07/02/17, may change to PO Cipro when dc , f/u podiatry rec-s [facility] staff Problems: GLENDA SOLIS NP Jun 13, 2017 14:21
[2017-06-13] MEDS: CEFTRIAXONE 2 GM/50 ML (PMX) 50 ML IVPB SCH (16:17)
[2017-06-13 20:00] VITALS: BP 124/75; RESP 20
[2017-06-14 02:00] VITALS: BP 149/81; RESP 20
[2017-06-14 08:00] VITALS: BP 129/71; RESP 19
[2017-06-14] MEDS: FAMOTIDINE 20 MG TAB PO SCH ×2 (08:28→20:27)
[2017-06-14] MEDS: HYDROmorphONE 2 MG TAB PO PRN ×4 (08:29→17:16)
--- NOTE | 2017-06-14 12:43 | PN ---
Date/Time of Note Date/Time of Note DATE: 06/14/17 TIME: 12:42 Assessment/Plan VTE Prophylaxis VTE Prophylaxis Intervention: ambulation Lines/Catheters IV [facility]from [facility]): Saline Lock Urinary Cath still in place: No Assessment/Plan Chief Complaint/Hosp Course 1. Left ankle septic arthritis, cx from [facility] +staph 2. ETOH Cirrhosis 3. Thrombocytopenia likely due to cirrhosis Problems: Assessment/Plan 1. continue rehabilitation, train pt to walk with crutches. Subjective 24 Hr Interval Summary Constitutional: improved, no complaints Musculoskeletal: bone/joint pain Exam/Review of Systems Vital Signs Vitals Vital Signs Date Time Temp Pulse Resp B/P Pulse Ox O2 Delivery O2 Flow Rate FiO2 06/14/17 08:00 98.0 78 19 129/71 96 06/12/17 14:36 Room Air Intake and Output 06/13/17 06/13/17 06/14/17 15:00 23:00 07:00 Intake Total 1390 ml 600 ml Output Total 500 ml 800 ml Balance 890 ml -200 ml Exam Constitutional: alert, oriented Respiratory: clear to auscultation Cardiovascular: regular rate and rhythm Gastrointestinal: soft Musculoskeletal: swelling (left foot) Neurological: GAME DESIGNER/CREATIVE DIRECTOR II-XII intact Results Result Diagram: 06/12/17 0459 Medications Medications Current Medications Acetaminophen (Tylenol Tab) 650 mg Q6H PRN PO PAIN AND OR ELEVATED TEMP Last administered on 06/05/17 14:51; Admin Dose 650 MG; Start 06/03/17 at 17:00 Morphine Sulfate (morphine) 2 mg Q4H PRN IV PAIN Last administered on 10:14; Admin Dose 2 MG; Start 06/03/17 at 17:00 Ondansetron HCl (Zofran Inj) 4 mg Q6 PRN IV NAUSEA AND/OR VOMITING; Start at 17:00 Famotidine 20 mg 20 mg BID PO Last administered on 06/14/17 08:28; Admin Dose 20 MG; Start 06/03/17 at 21:00 Ceftriaxone Sodium (Rocephin) 50 ml @ 100 mls/hr Q24H IVPB Last administered on 06/13/17 16:17; Admin Dose 100 MLS/HR; Start 06/08/17 at 17:00; Stop 07/03 at 16:59 Morphine Sulfate (morphine) 3 mg Q4H PRN IV PAIN LEVEL 1-5; Start 06/09/17 at 11:00 Morphine Sulfate (morphine) 4 mg Q4H PRN IV SEVERE PAIN LEVEL 7-10 Last administered on 06/12/17 14:52; Admin Dose 4 MG; Start 06/09/17 at 11:00 Hydromorphone HCl (Dilaudid) 4 mg Q4H PRN PO PAIN Last administered on 12:34; Admin Dose 4 MG; Start 06/11/17 at 11:30 Clonidine (Catapres) 0.1 mg TID PO Last administered on 06/14/17 12:34; Admin Dose 0.1 MG; Start 06/11/17 at 13:00 ASHANTI MARTINES Jun 14, 2017 12:43
[2017-06-14 14:00] VITALS: BP 109/60; RESP 19
[2017-06-14] MEDS: CEFTRIAXONE 2 GM/50 ML (PMX) 50 ML IVPB SCH (17:16)
--- NOTE | 2017-06-14 18:16 | CONS ---
Date/Time of Note Date/Time of Note DATE: 06/14/17 TIME: 18:10 Consultation Date/Type/Reason Admit Date/Time Jun 03, 2017 at 16:30 Initial Consult Date SUBJECTIVE: 47 y/o male being treated for Lt foot cellulitis. Feeling better. Looks comfortable, no fevers VS: 109/60 P: 81 R:19 T:97.5 SO2:96% LABS: none for today. Lt foot ulcer: GRAM STAIN Final POLYMORPH. LEUKOCYTE NONE SEEN . NO ORGANISM SEEN WOUND CULTURE Final Organism 1 STAPHYLOCOCCUS AUREUS QUANTITY SCANT GROWTH Abx: Rocephin GENERAL: The patient is awake, alert, in no acute distress. HEENT: Pupils equal, round, reactive to light. NECK: Supple HEART: S1, S2, regular rate and rhythm. LUNGS: Clear to auscultate bilaterally. ABDOMEN: Soft, nontender, nondistended,+ normoactive bowel sounds. EXTREMITIES: Left lower extremity with edema/erythema Assessment: 1. L foot cellulitis, septic arthritis==> fluid cx + DOM, s/p i&d 06/05/17 2. Ch. Liver Cirrhosis 3. Hx ETOH 4. Anemia Plan: Remains stable, continue abx till 07/02/17. Plan to D/C pt with PO Cipro. , f/u podiatry rec-s Type of Consultation: ID Exam/Review of Systems Vital Signs Vitals Vital Signs Date Time Temp Pulse Resp B/P Pulse Ox O2 Delivery O2 Flow Rate FiO2 06/14/17 14:00 97.5 81 19 109/60 96 06/12/17 14:36 Room Air Intake and Output 06/13/17 06/13/17 06/14/17 15:00 23:00 07:00 Intake Total 1390 ml 600 ml Output Total 500 ml 800 ml Balance 890 ml -200 ml Results Result Diagram: 06/12/17 0459 Medications Medications Current Medications Acetaminophen (Tylenol Tab) 650 mg Q6H PRN PO PAIN AND OR ELEVATED TEMP Last administered on 06/05/17 14:51; Admin Dose 650 MG; Start 06/03/17 at 17:00 Morphine Sulfate (morphine) 2 mg Q4H PRN IV PAIN Last administered on 10:14; Admin Dose 2 MG; Start 06/03/17 at 17:00 Ondansetron HCl (Zofran Inj) 4 mg Q6 PRN IV NAUSEA AND/OR VOMITING; Start at 17:00 Famotidine 20 mg 20 mg BID PO Last administered on 06/14/17 08:28; Admin Dose 20 MG; Start 06/03/17 at 21:00 Ceftriaxone Sodium (Rocephin) 50 ml @ 100 mls/hr Q24H IVPB Last administered on 06/14/17 17:16; Admin Dose 100 MLS/HR; Start 06/08/17 at 17:00; Stop 07/03 at 16:59 Morphine Sulfate (morphine) 3 mg Q4H PRN IV PAIN LEVEL 1-5; Start 06/09/17 at 11:00 Morphine Sulfate (morphine) 4 mg Q4H PRN IV SEVERE PAIN LEVEL 7-10 Last administered on 06/12/17 14:52; Admin Dose 4 MG; Start 06/09/17 at 11:00 Hydromorphone HCl (Dilaudid) 4 mg Q4H PRN PO PAIN Last administered on 17:16; Admin Dose 4 MG; Start 06/11/17 at 11:30 Clonidine (Catapres) 0.1 mg TID PO Last administered on 06/14/17 12:34; Admin Dose 0.1 MG; Start 06/11/17 at 13:00 ELIS FUNEZ Jun 14, 2017 18:15
[2017-06-14 20:00] VITALS: BP 123/78; RESP 18
[2017-06-14] MEDS: morphine 2 MG INJ IV PRN (20:27)
[2017-06-15] MEDS: HYDROmorphONE 2 MG TAB PO PRN (00:16)
[2017-06-15] MEDS: morphine 2 MG INJ IV PRN (01:05)
[2017-06-15 01:23] VITALS: BP 110/55; RESP 16
[2017-06-15] MEDS: morphine 4 MG/ML VIAL IV PRN ×5 (02:39→23:19)
[2017-06-15 06:35] LABS: CALCIUM 9.3 mg/dl (8.4-10.2); CREATININE 0.69 mg/dl (0.61-1.24); POTASSIUM 4.5 mmol/L (3.5-5.1)
[2017-06-15 08:00] VITALS: BP 128/69; RESP 18
[2017-06-15] MEDS: FAMOTIDINE 20 MG TAB PO SCH ×2 (08:23→20:59)
[2017-06-15 14:27] VITALS: BP 115/65; PULSE 71; RESP 18
--- NOTE | 2017-06-15 15:12 | PDOCDIS ---
Discharge Instructions CONDITION Patient Condition: Stable HOME CARE INSTRUCTIONS: Special Diet: 2 gram NA diet ACTIVITY: Activity Restrictions: Slowly Increase Activity FOLLOW UP/APPOINTMENTS Follow-up Plan f/u dr hough 1 wk f/u dr orellana 1 wk BG CABALLERO MD Jun 15, 2017 15:12
[2017-06-15] MEDS ORDERED: ACET325T40 PO (15:13)
[2017-06-15] MEDS ORDERED: CLON0.1T14 PO (15:13)
[2017-06-15] MEDS ORDERED: FAMO20TA18 PO (15:13)
[2017-06-15] MEDS ORDERED: HYDR2TAB36 PO (15:13)
--- NOTE | 2017-06-15 15:16 | PN ---
Date/Time of Note Date/Time of Note DATE: 06/15/17 TIME: 15:15 Assessment/Plan VTE Prophylaxis VTE Prophylaxis Intervention: other Lines/Catheters IV Catheter Type (from Nrsg): Saline Lock Urinary Cath still in place: No Assessment/Plan Chief Complaint/Hosp Course # Left ankle septic arthritis, cx from [facility] +staph and Gram stain + staph aureus # S/P ANKLE SURGERY # ETOH Cirrhosis # Thrombocytopenia likely due to cirrhosis abn lft htn PLAN ANTIBIOTIC PER ID PAIN MEDS bp meds will need snf POST SURGERY PER DR MCKAY snf if no surgery Problems: Subjective 24 Hr Interval Summary Subjective hx not possible: other (foot pain+) Exam/Review of Systems Vital Signs Vitals Vital Signs Date Time Temp Pulse Resp B/P Pulse Ox O2 Delivery O2 Flow Rate FiO2 06/15/17 14:27 98.4 71 18 115/65 98 Room Air Intake and Output 06/14/17 06/14/17 06/15/17 15:00 23:00 07:00 Intake Total 910 ml 240 ml Output Total 400 ml Balance 910 ml -160 ml Exam Neck: supple Respiratory: clear to auscultation Cardiovascular: regular rate and rhythm Gastrointestinal: bowel sounds (+), soft Extremities: edema (+), other (foot pain +) Results Result Diagram: 06/15/17 0528 Results 24 hrs Laboratory Tests Test 06/15/17 05:28 Sodium Level 135 Potassium Level 4.5 Chloride Level 102 Carbon Dioxide Level 26 Anion Gap 12 Blood Urea Nitrogen 13 Creatinine 0.69 Glucose Level 94 Calcium Level 9.3 Medications Medications Current Medications Acetaminophen (Tylenol Tab) 650 mg Q6H PRN PO PAIN AND OR ELEVATED TEMP Last administered on 06/05/17 14:51; Admin Dose 650 MG; Start 06/03/17 at 17:00 Morphine Sulfate (morphine) 2 mg Q4H PRN IV PAIN Last administered on 01:05; Admin Dose 2 MG; Start 06/03/17 at 17:00 Ondansetron HCl (Zofran Inj) 4 mg Q6 PRN IV NAUSEA AND/OR VOMITING; Start at 17:00 Famotidine 20 mg 20 mg BID PO Last administered on 06/15/17 08:23; Admin Dose 20 MG; Start 06/03/17 at 21:00 Ceftriaxone Sodium (Rocephin) 50 ml @ 100 mls/hr Q24H IVPB Last administered on 06/14/17 17:16; Admin Dose 100 MLS/HR; Start 06/08/17 at 17:00; Stop 07/03 at 16:59 Morphine Sulfate (morphine) 3 mg Q4H PRN IV PAIN LEVEL 1-5; Start 06/09/17 at 11:00 Morphine Sulfate (morphine) 4 mg Q4H PRN IV SEVERE PAIN LEVEL 7-10 Last administered on 06/15/17 12:19; Admin Dose 4 MG; Start 06/09/17 at 11:00 Hydromorphone HCl (Dilaudid) 4 mg Q4H PRN PO PAIN Last administered on 00:16; Admin Dose 4 MG; Start 06/11/17 at 11:30 Clonidine (Catapres) 0.1 mg TID PO Last administered on 06/15/17 13:55; Admin Dose 0.1 MG; Start 06/11/17 at 13:00 BG CABALLERO MD Jun 15, 2017 15:16
[2017-06-15] MEDS ORDERED: BUPIVACAINE 0.5% 30 ML VIAL INJ SCH (16:00)
[2017-06-15] MEDS ORDERED: TRIAMCINOLONE ACET 40 MG/ML INJ INJ SCH (16:00)
[2017-06-15] MEDS ORDERED: LIDOCAINE 2% (MDV) 20 ML INJ INJ SCH (16:00)
[2017-06-15] MEDS: CEFTRIAXONE 2 GM/50 ML (PMX) 50 ML IVPB SCH (16:16)
[2017-06-15 20:44] VITALS: BP 112/58; RESP 18
--- NOTE | 2017-06-15 22:17 | PN ---
Date/Time of Note Date/Time of Note DATE: 06/15/17 TIME: 22:15 Assessment/Plan Lines/Catheters IV Catheter Type (from Nrsg): Saline Lock May in Place (from Nrsg): No Assessment/Plan Problems: (1) Left ankle pain (2) EtOH dependence Assessment/Plan Recommendation is an intra-articular injection of the left ankle using Kenalog 40, 2% lidocaine plain and 0.5% Marcaine plain. Patient is scheduled to have that at bedside. That was done today. Patient reports significant reduction in pain 10 minutes after the injection was done. See procedure report. Patient will be followed in-house. Subjective 24 Hr Interval Summary Patient was seen at bedside. Patient is in no acute distress. Patient reports no new adverse events. Patient denies fever, chills, nausea or vomiting. Patient reports left ankle pain is improved. Patient denies recent trauma. Reports he is able to move his ankle and leg little bit more today. Patient does not report any new problems. Constitutional: no complaints Pain Control: well controlled Exam/Review of Systems Vital Signs Vitals Vital Signs Date Time Temp Pulse Resp B/P Pulse Ox O2 Delivery O2 Flow Rate FiO2 06/15/17 20:44 98.2 73 18 112/58 98 06/15/17 14:27 Room Air Intake and Output 06/14/17 06/14/17 06/15/17 15:00 23:00 07:00 Intake Total 910 ml 240 ml Output Total 400 ml Balance 910 ml -160 ml Exam Free Text/Dictation Laying supine in bed in no acute distress Left ankle is improved as far as edema and erythema Left ankle continues to be tender to range of motion and palpation Palm are in place with no wound dehiscence and no sign of infection Palpable pulses noted Edema of the left foot and ankle noted but reduced Labs reviewed No open wounds noted on the right lower extremity No open wounds noted on the left lower extremity Constitutional: alert, oriented, well developed Psych: nl mood/affect, no complaints Head: atraumatic, normocephalic Eyes: EOMI, nl conjunctiva, nl lids, nl sclera ENMT: mucosa pink and moist, nl external ears & nose, nl lips & teeth, nl nasal mucosa & septum Neck: non-tender, supple Respiratory: clear to auscultation, normal air movement Cardiovascular: nl pulses, regular rate and rhythm Gastrointestinal: nl liver, spleen, non-tender, soft Results Result Diagram: 06/15/17 0528 CASPER GARCIA DPM Jun 15, 2017 22:17
--- NOTE | 2017-06-15 22:21 | OPR ---
Date/Time of Note Date/Time of Note DATE: 06/15/17 TIME: 22:17 Operative Report Procedure Date: Jun 15, 2017 Preoperative Diagnosis Left ankle pain Left septic ankle EtOH abuse Postoperative Diagnosis Same Operation/Procedure Performed Left intra-articular injection of 1 cc of Kenalog 40, 2 cc of 0.5% Marcaine plain and 2 cc of 2% lidocaine plain using aseptic technique. Surgeon see signature line Molded Rubber Good[employer] Cutter None Anesthesia Type: other (Local) Estimated Blood Loss: none Transfusion none Specimen Not applicable Grafts/Implants none Complications none Pt Condition Post Procedure: stable Disposition: other (Patient remains in his room) Indications Severe left ankle pain Procedure Description Discussed and counseled patient extensively on left ankle intra-articular injection of Kenalog 40, 2% lidocaine plain and 0.5% Marcaine plain. Purpose of the injection is diagnostic in nature. Risks and complications were discussed in great detail including but not limited to post procedure infection , failure injection to relieve pain, continued chronic pain, increasing pain. Left ankle was scrubbed prepped and draped in usual aseptic manner. I injected the left ankle using a mixture of 1 cc of Kenalog 40, 2 cc of 2% lidocaine plain and 0.5 cc of 0.5% Marcaine plain using aseptic technique. A Band-Aid was applied postinjection. About 2-3 minutes postinjection palpation reported 0 pain in his left ankle. CASPER GARCIA DPM Jun 15, 2017 22:21
[2017-06-16 02:10] VITALS: BP 145/79; RESP 20
[2017-06-16 08:11] VITALS: BP 106/62; RESP 20
[2017-06-16] MEDS: FAMOTIDINE 20 MG TAB PO SCH ×2 (08:26→21:48)
[2017-06-16 14:04] VITALS: BP 110/64; RESP 20
[2017-06-16] MEDS: CEFTRIAXONE 2 GM/50 ML (PMX) 50 ML IVPB SCH (16:04)
[2017-06-16 19:34] VITALS: BP 139/74; RESP 16
--- NOTE | 2017-06-16 23:20 | PN ---
Date/Time of Note Date/Time of Note DATE: 06/16/17 TIME: 23:18 Assessment/Plan VTE Prophylaxis VTE Prophylaxis Intervention: other Lines/Catheters IV Catheter Type (from Nrs): Saline Lock Urinary Cath still in place: No Assessment/Plan Chief Complaint/Hosp Course # Left ankle septic arthritis, cx from [facility] +staph and Gram stain + staph aureus # S/P ANKLE SURGERY # ETOH Cirrhosis # Thrombocytopenia likely due to cirrhosis abn lft htn PLAN ANTIBIOTIC PER ID PAIN MEDS bp meds will need snf pain meds Problems: Subjective 24 Hr Interval Summary Subjective hx not possible: other (s/p ain meds inj ankle) Exam/Review of Systems Vital Signs Vitals Vital Signs Date Time Temp Pulse Resp B/P Pulse Ox O2 Delivery O2 Flow Rate FiO2 06/16/17 19:34 98.4 75 16 139/74 98 06/15/17 14:27 Room Air Intake and Output 06/15/17 06/15/17 06/16/17 15:00 23:00 07:00 Intake Total 1770 ml 940 ml Output Total 1300 ml 1100 ml Balance 470 ml -160 ml Exam Neck: supple Respiratory: clear to auscultation Cardiovascular: regular rate and rhythm Gastrointestinal: bowel sounds (+), soft Extremities: edema (+) Results Result Diagram: 06/15/17 0528 Medications Medications Current Medications Acetaminophen (Tylenol Tab) 650 mg Q6H PRN PO PAIN AND OR ELEVATED TEMP Last administered on 06/05/17 14:51; Admin Dose 650 MG; Start 06/03/17 at 17:00 Morphine Sulfate (morphine) 2 mg Q4H PRN IV PAIN Last administered on 01:05; Admin Dose 2 MG; Start 06/03/17 at 17:00 Ondansetron HCl (Zofran Inj) 4 mg Q6 PRN IV NAUSEA AND/OR VOMITING; Start at 17:00 Famotidine 20 mg 20 mg BID PO Last administered on 06/16/17 21:48; Admin Dose 20 MG; Start 06/03/17 at 21:00 Ceftriaxone Sodium (Rocephin) 50 ml @ 100 mls/hr Q24H IVPB Last administered on 06/16/17 16:04; Admin Dose 100 MLS/HR; Start 06/08/17 at 17:00; Stop 07/03 at 16:59 Morphine Sulfate (morphine) 3 mg Q4H PRN IV PAIN LEVEL 1-5; Start 06/09/17 at 11:00 Morphine Sulfate (morphine) 4 mg Q4H PRN IV SEVERE PAIN LEVEL 7-10 Last administered on 06/15/17 23:19; Admin Dose 4 MG; Start 06/09/17 at 11:00 Hydromorphone HCl (Dilaudid) 4 mg Q4H PRN PO PAIN Last administered on 00:16; Admin Dose 4 MG; Start 06/11/17 at 11:30 Clonidine (Catapres) 0.1 mg TID PO Last administered on 06/16/17 21:48; Admin Dose 0.1 MG; Start 06/11/17 at 13:00 BG CABALLERO MD Jun 16, 2017 23:19
[2017-06-17 01:56] VITALS: BP 104/62; RESP 20
[2017-06-17 07:42] VITALS: BP 109/62; RESP 20
[2017-06-17] MEDS: FAMOTIDINE 20 MG TAB PO SCH ×2 (08:17→20:54)
[2017-06-17 14:28] VITALS: BP 145/75; RESP 20
[2017-06-17] MEDS: CEFTRIAXONE 2 GM/50 ML (PMX) 50 ML IVPB SCH (16:00)
[2017-06-17 21:06] VITALS: BP 133/72; RESP 18
--- NOTE | 2017-06-17 22:17 | PN ---
Date/Time of Note Date/Time of Note DATE: 06/17/17 TIME: 22:16 Assessment/Plan VTE Prophylaxis VTE Prophylaxis Intervention: other Lines/Catheters IV Catheter Type (from Nrs): Saline Lock Urinary Cath still in place: No Assessment/Plan Chief Complaint/Hosp Course # Left ankle septic arthritis, cx from [facility] +staph and Gram stain + staph aureus # S/P ANKLE SURGERY # ETOH abuse w Cirrhosis # Thrombocytopenia likely due to cirrhosis abn lft htn PLAN ANTIBIOTIC PER ID PAIN MEDS bp meds will need snf pain meds Problems: Subjective 24 Hr Interval Summary Subjective hx not possible: other (ankle pain less,need snf) Exam/Review of Systems Vital Signs Vitals Vital Signs Date Time Temp Pulse Resp B/P Pulse Ox O2 Delivery O2 Flow Rate FiO2 06/17/17 21:06 98.3 66 18 133/72 97 06/15/17 14:27 Room Air Intake and Output 06/16/17 06/16/17 06/17/17 14:59 22:59 06:59 Intake Total 50 ml 850 ml Output Total 1300 ml Balance 50 ml -450 ml Exam Neck: supple Respiratory: clear to auscultation Cardiovascular: regular rate and rhythm Gastrointestinal: bowel sounds (+), soft Extremities: edema Results Result Diagram: 06/15/17 0528 Medications Medications Current Medications Acetaminophen (Tylenol Tab) 650 mg Q6H PRN PO PAIN AND OR ELEVATED TEMP Last administered on 06/05/17 14:51; Admin Dose 650 MG; Start 06/03/17 at 17:00 Morphine Sulfate (morphine) 2 mg Q4H PRN IV PAIN Last administered on 01:05; Admin Dose 2 MG; Start 06/03/17 at 17:00 Ondansetron HCl (Zofran Inj) 4 mg Q6 PRN IV NAUSEA AND/OR VOMITING; Start at 17:00 Famotidine 20 mg 20 mg BID PO Last administered on 06/17/17 20:54; Admin Dose 20 MG; Start 06/03/17 at 21:00 Ceftriaxone Sodium (Rocephin) 50 ml @ 100 mls/hr Q24H IVPB Last administered on 06/17/17 16:00; Admin Dose 100 MLS/HR; Start 06/08/17 at 17:00; Stop 07/03 at 16:59 Morphine Sulfate (morphine) 3 mg Q4H PRN IV PAIN LEVEL 1-5; Start 06/09/17 at 11:00 Morphine Sulfate (morphine) 4 mg Q4H PRN IV SEVERE PAIN LEVEL 7-10 Last administered on 06/15/17 23:19; Admin Dose 4 MG; Start 06/09/17 at 11:00 Hydromorphone HCl (Dilaudid) 4 mg Q4H PRN PO PAIN Last administered on 00:16; Admin Dose 4 MG; Start 06/11/17 at 11:30 Clonidine (Catapres) 0.1 mg TID PO Last administered on 06/17/17 20:54; Admin Dose 0.1 MG; Start 06/11/17 at 13:00 BG CABALLERO MD Jun 17, 2017 22:17
[2017-06-18 02:12] VITALS: BP 149/79; RESP 18
[2017-06-18 07:32] VITALS: BP 127/79; RESP 20
[2017-06-18] MEDS: FAMOTIDINE 20 MG TAB PO SCH ×2 (08:44→21:00)
[2017-06-18] MEDS: ACETAMINOPHEN 325 MG TAB PO PRN (08:48)
[2017-06-18] MEDS: morphine 4 MG/ML VIAL IV PRN (12:56)
[2017-06-18 14:48] VITALS: BP 120/76; RESP 20
[2017-06-18] MEDS: CEFTRIAXONE 2 GM/50 ML (PMX) 50 ML IVPB SCH (16:32)
--- NOTE | 2017-06-18 19:06 | PN ---
Date/Time of Note Date/Time of Note DATE: 06/18/17 TIME: 19:04 Assessment/Plan VTE Prophylaxis VTE Prophylaxis Intervention: other Lines/Catheters IV Catheter Type (from Nrs): Saline Lock Urinary Cath still in place: No Assessment/Plan Chief Complaint/Hosp Course # Left ankle septic arthritis, cx from [facility] +staph and Gram stain + staph aureus # S/P ANKLE SURGERY # ETOH abuse w Cirrhosis # Thrombocytopenia likely due to cirrhosis abn lft htn PLAN ANTIBIOTIC PER ID PAIN MEDS bp meds will need snf pain meds Problems: Subjective 24 Hr Interval Summary Subjective hx not possible: other (foot pain+) Exam/Review of Systems Vital Signs Vitals Vital Signs Date Time Temp Pulse Resp B/P Pulse Ox O2 Delivery O2 Flow Rate FiO2 06/18/17 14:48 98.7 78 20 120/76 98 06/15/17 14:27 Room Air Intake and Output 06/17/17 06/17/17 06/18/17 15:00 23:00 07:00 Intake Total 790 ml 950 ml Output Total 1300 ml 1450 ml Balance -510 ml -500 ml Exam Respiratory: clear to auscultation Cardiovascular: regular rate and rhythm Gastrointestinal: bowel sounds (+), soft Results Result Diagram: 06/15/17 0528 Medications Medications Current Medications Acetaminophen (Tylenol Tab) 650 mg Q6H PRN PO PAIN AND OR ELEVATED TEMP Last administered on 06/18/17 08:48; Admin Dose 650 MG; Start 06/03/17 at 17:00 Morphine Sulfate (morphine) 2 mg Q4H PRN IV PAIN Last administered on 01:05; Admin Dose 2 MG; Start 06/03/17 at 17:00 Ondansetron HCl (Zofran Inj) 4 mg Q6 PRN IV NAUSEA AND/OR VOMITING; Start at 17:00 Famotidine 20 mg 20 mg BID PO Last administered on 06/18/17 08:44; Admin Dose 20 MG; Start 06/03/17 at 21:00 Ceftriaxone Sodium (Rocephin) 50 ml @ 100 mls/hr Q24H IVPB Last administered on 06/18/17 16:32; Admin Dose 100 MLS/HR; Start 06/08/17 at 17:00; Stop 07/03 at 16:59 Morphine Sulfate (morphine) 3 mg Q4H PRN IV PAIN LEVEL 1-5; Start 06/09/17 at 11:00 Morphine Sulfate (morphine) 4 mg Q4H PRN IV SEVERE PAIN LEVEL 7-10 Last administered on 06/18/17 12:56; Admin Dose 4 MG; Start 06/09/17 at 11:00 Hydromorphone HCl (Dilaudid) 4 mg Q4H PRN PO PAIN Last administered on 00:16; Admin Dose 4 MG; Start 06/11/17 at 11:30 Clonidine (Catapres) 0.1 mg TID PO Last administered on 06/18/17 13:00; Admin Dose 0.1 MG; Start 06/11/17 at 13:00 BG CABALLERO MD Jun 18, 2017 19:06
[2017-06-18 20:20] VITALS: BP 111/55; RESP 18
[2017-06-18 21:03] VITALS: BP 139/75; PULSE 71
[2017-06-18] MEDS: morphine 2 MG INJ IV PRN (21:04)
[2017-06-19 03:12] VITALS: BP 133/73; RESP 16
[2017-06-19 06:44] LABS: ALBUMIN 3.6 g/dl (3.3-4.9); ALBUMIN/GLOBULIN RATIO 0.81; BILIRUBIN,INDIRECT 0.3 mg/dl (0-1.1); BILIRUBIN,TOTAL 0.3 mg/dl (0.2-1.3); CALCIUM 8.6 mg/dl (8.4-10.2); CREATININE 0.58 mg/dl (0.61-1.24); POTASSIUM 4.3 mmol/L (3.5-5.1)
[2017-06-19 07:54] VITALS: BP 121/69; RESP 18
[2017-06-19] MEDS: FAMOTIDINE 20 MG TAB PO SCH ×2 (08:45→20:11)
[2017-06-19 14:17] VITALS: BP 120/67; RESP 18
[2017-06-19] MEDS: CEFTRIAXONE 2 GM/50 ML (PMX) 50 ML IVPB SCH (16:14)
--- NOTE | 2017-06-19 18:33 | PN ---
Date/Time of Note Date/Time of Note DATE: 06/19/17 TIME: 18:33 Assessment/Plan VTE Prophylaxis VTE Prophylaxis Intervention: other Lines/Catheters IV Catheter Type (from Nrs): Saline Lock Urinary Cath still in place: No Assessment/Plan Chief Complaint/Hosp Course # Left ankle septic arthritis, cx from [facility] +staph and Gram stain + staph aureus # S/P ANKLE SURGERY # ETOH abuse w Cirrhosis # Thrombocytopenia likely due to cirrhosis abn lft htn PLAN ANTIBIOTIC PER ID PAIN MEDS bp meds will need snf pain meds Problems: Subjective 24 Hr Interval Summary Subjective hx not possible: other (FOOT PAIN+) Exam/Review of Systems Vital Signs Vitals Vital Signs Date Time Temp Pulse Resp B/P Pulse Ox O2 Delivery O2 Flow Rate FiO2 06/19/17 14: 97.5 66 18 120/67 97 06/15/17 14:27 Room Air Intake and Output 06/18/17 06/18/17 06/19/17 14:59 22:59 06:59 Intake Total 970 ml 240 ml Output Total 1500 ml 950 ml Balance -530 ml -710 ml Exam Respiratory: clear to auscultation Cardiovascular: regular rate and rhythm Gastrointestinal: soft Musculoskeletal: nl extremities to inspection Extremities: normal pulses Results Result Diagram: 06/19/17521 Results 24 hrs Laboratory Tests Test 06/19/17 05:22 Sodium Level 142 Potassium Level 4.3 Chloride Level 110 Carbon Dioxide Level 22 Anion Gap 14 Blood Urea Nitrogen 14 Creatinine 0.58 L Glucose Level 126 Calcium Level 8.6 Total Bilirubin 0.3 Direct Bilirubin 0.00 Indirect Bilirubin 0.3 Aspartate Amino Transf (AST/SGOT) 88 H Alanine Aminotransferase (ALT/SGPT) 74 H Alkaline Phosphatase 258 H Total Protein 8.0 Albumin 3.6 Globulin 4.40 H Albumin/Globulin Ratio 0.81 Medications Medications Current Medications Acetaminophen (Tylenol Tab) 650 mg Q6H PRN PO PAIN AND OR ELEVATED TEMP Last administered on 06/18/17 08:48; Admin Dose 650 MG; Start 06/03/17 at 17:00 Morphine Sulfate (morphine) 2 mg Q4H PRN IV PAIN Last administered on 21:04; Admin Dose 2 MG; Start 06/03/17 at 17:00 Ondansetron HCl (Zofran Inj) 4 mg Q6 PRN IV NAUSEA AND/OR VOMITING; Start at 17:00 Famotidine 20 mg 20 mg BID PO Last administered on 06/19/17 08:45; Admin Dose 20 MG; Start 06/03/17 at 21:00 Ceftriaxone Sodium (Rocephin) 50 ml @ 100 mls/hr Q24H IVPB Last administered on 06/19/17 16:14; Admin Dose 100 MLS/HR; Start 06/08/17 at 17:00; Stop 07/03 at 16:59 Morphine Sulfate (morphine) 3 mg Q4H PRN IV PAIN LEVEL 1-5; Start 06/09/17 at 11:00 Morphine Sulfate (morphine) 4 mg Q4H PRN IV SEVERE PAIN LEVEL 7-10 Last administered on 06/18/17 12:56; Admin Dose 4 MG; Start 06/09/17 at 11:00 Hydromorphone HCl (Dilaudid) 4 mg Q4H PRN PO PAIN Last administered on 00:16; Admin Dose 4 MG; Start 06/11/17 at 11:30 Clonidine (Catapres) 0.1 mg TID PO Last administered on 06/19/17 15:41; Admin Dose 0.1 MG; Start 06/11/17 at 13:00 BG CABALLERO MD Jun 19, 2017 18:33
[2017-06-19 20:00] VITALS: BP 105/62; RESP 20
[2017-06-20 02:00] VITALS: BP 110/69; RESP 20
[2017-06-20] MEDS: morphine 4 MG/ML VIAL IV PRN ×3 (03:21→14:10)
[2017-06-20 08:01] VITALS: BP 116/71; RESP 20
[2017-06-20] MEDS: FAMOTIDINE 20 MG TAB PO SCH ×2 (08:53→20:29)
--- NOTE | 2017-06-20 11:12 | PN ---
Date/Time of Note Date/Time of Note DATE: 06/20/17 TIME: 11:11 Assessment/Plan VTE Prophylaxis VTE Prophylaxis Intervention: ambulation Lines/Catheters IV [facility] Type (from [facility]): Saline Lock Urinary Cath still in place: No Assessment/Plan Chief Complaint/Hosp Course 1. Left ankle septic arthritis, cx from [facility] +staph 2. ETOH Cirrhosis 3. Thrombocytopenia likely due to cirrhosis Problems: Assessment/Plan 1. continue physical therapy 2. continue current regime Subjective 24 Hr Interval Summary Constitutional: improved, no complaints Exam/Review of Systems Vital Signs Vitals Vital Signs Date Time Temp Pulse Resp B/P Pulse Ox O2 Delivery O2 Flow Rate FiO2 06/20/17 08:01 97.8 61 20 116/71 100 Intake and Output 06/19/17 06/19/17 06/20/17 14:59 22:59 06:59 Intake Total 480 ml 360 ml Output Total 1500 ml Balance 480 ml -1140 ml Exam Constitutional: alert, oriented Eyes: nl conjunctiva Neck: supple Respiratory: clear to auscultation Cardiovascular: regular rate and rhythm Gastrointestinal: soft Musculoskeletal: swelling (left ankle) Results Result Diagram: 06/19/17 0522 Medications Medications Current Medications Acetaminophen (Tylenol Tab) 650 mg Q6H PRN PO PAIN AND OR ELEVATED TEMP Last administered on 06/18/17 08:48; Admin Dose 650 MG; Start 06/03/17 at 17:00 Morphine Sulfate (morphine) 2 mg Q4H PRN IV PAIN Last administered on 21:04; Admin Dose 2 MG; Start 06/03/17 at 17:00 Ondansetron HCl (Zofran Inj) 4 mg Q6 PRN IV NAUSEA AND/OR VOMITING; Start at 17:00 Famotidine 20 mg 20 mg BID PO Last administered on 06/20/17 08:53; Admin Dose 20 MG; Start 06/03/17 at 21:00 Ceftriaxone Sodium (Rocephin) 50 ml @ 100 mls/hr Q24H IVPB Last administered on 06/19/17 16:14; Admin Dose 100 MLS/HR; Start 06/08/17 at 17:00; Stop 07/03 at 16:59 Morphine Sulfate (morphine) 3 mg Q4H PRN IV PAIN LEVEL 1-5; Start 06/09/17 at 11:00 Morphine Sulfate (morphine) 4 mg Q4H PRN IV SEVERE PAIN LEVEL 7-10 Last administered on 06/20/17 08:56; Admin Dose 4 MG; Start 06/09/17 at 11:00 Hydromorphone HCl (Dilaudid) 4 mg Q4H PRN PO PAIN Last administered on 00:16; Admin Dose 4 MG; Start 06/11/17 at 11:30 Clonidine (Catapres) 0.1 mg TID PO Last administered on 06/20/17 08:54; Admin Dose 0.1 MG; Start 06/11/17 at 13:00 ASHANTI MARTINES Jun 20, 2017 11:12
[2017-06-20 14:15] VITALS: BP 109/54; PULSE 65; RESP 16
[2017-06-20] MEDS: CEFTRIAXONE 2 GM/50 ML (PMX) 50 ML IVPB SCH (17:29)
[2017-06-20 20:20] VITALS: BP 130/78; RESP 18
[2017-06-21] MEDS: morphine 2 MG INJ IV PRN ×3 (00:41→16:12)
[2017-06-21 02:28] VITALS: BP 110/63; RESP 17
[2017-06-21 07:30] VITALS: BP 107/66; RESP 16
[2017-06-21] MEDS: FAMOTIDINE 20 MG TAB PO SCH ×2 (08:51→20:30)
--- NOTE | 2017-06-21 11:11 | PN ---
Date/Time of Note Date/Time of Note DATE: 06/21/17 TIME: 11:11 Assessment/Plan VTE Prophylaxis VTE Prophylaxis Intervention: ambulation Lines/Catheters IV [facility] Saline Lock Urinary Cath still in place: No Assessment/Plan Chief Complaint/Hosp Course 1. Left ankle septic arthritis, cx from [facility] +staph 2. ETOH Cirrhosis 3. Thrombocytopenia likely due to cirrhosis Problems: Assessment/Plan 1. d.c IV pain control meds 2. start on [place] prn pain 3. Discharge tomorrrow 4. Pt will speak to his daugheter regarding dic Subjective 24 Hr Interval Summary Constitutional: improved, no complaints Exam/Review of Systems Vital Signs Vitals Vital Signs Date Time Temp Pulse Resp B/P Pulse Ox O2 Delivery O2 Flow Rate FiO2 06/21/17 07:30 98.5 58 16 107/66 97 06/20/17 14:15 Room Air Intake and Output 06/20/17 06/20/17 06/21/17 15:00 23:00 07:00 Intake Total 1470 ml 300 ml Output Total 1200 ml 700 ml Balance 270 ml -400 ml Exam Constitutional: alert, oriented ENMT: nl external ears & nose Neck: supple Cardiovascular: regular rate and rhythm Musculoskeletal: swelling (left leg decreased) Results Result Diagram: 06/19/17 0522 Medications Medications Current Medications Acetaminophen (Tylenol Tab) 650 mg Q6H PRN PO PAIN AND OR ELEVATED TEMP Last administered on 06/18/17 08:48; Admin Dose 650 MG; Start 06/03/17 at 17:00 Morphine Sulfate (morphine) 2 mg Q4H PRN IV PAIN Last administered on 07:08; Admin Dose 2 MG; Start 06/03/17 at 17:00 Ondansetron HCl (Zofran Inj) 4 mg Q6 PRN IV NAUSEA AND/OR VOMITING; Start at 17:00 Famotidine 20 mg 20 mg BID PO Last administered on 06/21/17 08:51; Admin Dose 20 MG; Start 06/03/17 at 21:00 Ceftriaxone Sodium (Rocephin) 50 ml @ 100 mls/hr Q24H IVPB Last administered on 06/20/17 17:29; Admin Dose 100 MLS/HR; Start 06/08/17 at 17:00; Stop at 16:59 Morphine Sulfate (morphine) 3 mg Q4H PRN IV PAIN LEVEL 1-5; Start 06/09/17 at 11:00 Morphine Sulfate (morphine) 4 mg Q4H PRN IV SEVERE PAIN LEVEL 7-10 Last administered on 06/20/17 14:10; Admin Dose 4 MG; Start 06/09/17 at 11:00 Hydromorphone HCl (Dilaudid) 4 mg Q4H PRN PO PAIN Last administered on 00:16; Admin Dose 4 MG; Start 06/11/17 at 11:30 Clonidine (Catapres) 0.1 mg TID PO Last administered on 06/20/17 20:29; Admin Dose 0.1 MG; Start 06/11/17 at 13:00 ASHANTI MARTINES Jun 21, 2017 11:11
[2017-06-21] MEDS: HYDROCODONE/APAP (5/325) TAB PO PRN ×2 (11:27→20:31)
[2017-06-21 14:15] VITALS: BP 122/97; RESP 16
[2017-06-21] MEDS: CEFTRIAXONE 2 GM/50 ML (PMX) 50 ML IVPB SCH (16:13)
[2017-06-21 20:39] VITALS: BP 157/81; RESP 19
[2017-06-22 02:00] VITALS: BP 135/72; RESP 20
[2017-06-22 06:42] LABS: BASOPHILS % 0.6 % (0.0-2.0); EOSINOPHILS # 0.1 10^3/ul (0.0-0.5); HEMATOCRIT 35.2 % (42.0-52.0); HEMOGLOBIN 11.5 g/dl (14.0-18.0); LYMPHOCYTES # 1.1 10^3/ul (0.8-2.9); LYMPHOCYTES % 21.2 % (15.0-51.0); MEAN CORPUSCULAR HEMOGLOBIN 32.8 pg (29.0-33.0); MEAN CORPUSCULAR HGB CONC 32.7 g/dl (32.0-37.0); MEAN CORPUSCULAR VOLUME 100.3 fl (82.0-101.0); MEAN PLATELET VOLUME 10.8 fl (7.4-10.4); MONOCYTE # 0.7 10^3/ul (0.3-0.9); MONOCYTES % 13.1 % (0.0-11.0); NEUTROPHIL # 3.2 10^3/ul (1.6-7.5); NEUTROPHILS % 63.5 % (39.0-77.0); PLATELET COUNT 206 10^3/UL (140-415); RED BLOOD COUNT 3.51 10^6/ul (4.70-6.10); RED CELL DISTRIBUTION WIDTH 14.6 % (11.5-14.5)
[2017-06-22 07:44] LABS: CALCIUM 8.8 mg/dl (8.4-10.2); CREATININE 0.64 mg/dl (0.61-1.24); POTASSIUM 4.1 mmol/L (3.5-5.1)
[2017-06-22] MEDS ORDERED: HYDR-3498 PO (07:45)
--- NOTE | 2017-06-22 07:46 | PDOCDIS ---
Discharge Instructions CONDITION Patient Condition: Stable HOME CARE INSTRUCTIONS: Special Diet: 2GM Na ACTIVITY: Activity Restrictions: Slowly Increase Activity FOLLOW UP/APPOINTMENTS Follow-up Plan f/u dr hough 1 wk f/u dr orellana 1 wk SCHOOL/WORK RELEASE May return to School/Work with: With Restrictions (use crutches) ASHANTI MARTINES Jun 22, 2017 07:46
[2017-06-22] MEDS ORDERED: CIPR500T4 PO (07:49)
[2017-06-22 08:04] VITALS: BP 130/79; RESP 19
--- NOTE | 2017-06-22 08:58 | DS ---
Date/Time of Note Date/Time of Note DATE: 06/22/17 TIME: 08:57 Discharge Summary Admission/Discharge Info Admit Date/Time Jun 03, 2017 at 16:30 Discharge Date/Time Discharge Diagnosis left ankle septic arthritis, liver cirrhosis Patient Condition: Stable Consults Dr Hurley, Dr Allison Procedures Left ankle diagnostic arthroscopy with debridement Hospital Course Patient is transferred from [facility] for septic arthritis of the left ankle. Since the patient is contracted, this hospital is capitated with the insurance. A 47-year-old male with heavy ETOH abuse in the past, history of cirrhosis, seen in ED at [facility] on 05/31/2017 with left ankle pain associated with redness and swelling. Ankle was aspirated with a cell count of 39,000, 89 % PMNs, no crystals. Initial negative Gram stain. The patient had pain improvement with NSAIDs, bilateral DIP joint tophi, no pain with micromotion. 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 The patient was having worsening pain , swelling, fevers and chills. Ibuprofen did not help. Ortho was consulted there, and pain was spreading proximally to the mid leg. He was not on antibiotics. Prior cultures have resulted with +1 staph infection. However, case was discussed with Dr. Caballero. Patient was started on vancomycin and Rocephin, and was transferred here for insurance reasons.# Left ankle septic arthritis, cx from [facility] +staph and Gram stain + staph aureus # S/P ANKLE SURGERY # ETOH abuse w Cirrhosis # Thrombocytopenia likely due to cirrhosis abn lft htn SNF was not approved per insurance. Pt lives in his car. Pt was discharged home with pain medications and crutches. Hospitalization was unremarkable. Home Meds Active Scripts Ciprofloxacin Hcl* (Ciprofloxacin Hcl*) 500 Mg Tablet, 500 MG PO BID, #10 TAB Prov:ASHANTI MARTINES 06/22/17 Hydrocodone Bit-Acetaminophen (Hydrocodone Bit-APAP) 5-325MG Tablet, 1 TAB PO Q6H Y for PAIN LEVEL 4-6 for 14 Days, TAB Prov:ASHANTI MARTINES 06/22/17 Famotidine* (Famotidine*) 20 Mg Tablet, 20 MG PO BID for 28 Days, TAB Prov:BG CABALLERO MD 06/15/17 Acetaminophen (MAPAP) 325 Mg Tablet, 650 MG PO Q6H Y for PAIN AND OR ELEVATED TEMP for 10 Days, TAB Prov:BG CABALLERO MD 06/15/17 Clonidine Hcl* (Catapres*) 0.1 Mg Tablet, 0.1 MG PO TID for 28 Days, TAB Prov:BG CABALLERO MD 06/15/17 Follow-up Plan f/u dr hough 1 wk f/u dr orellana 1 wk Primary Care Provider Care Physician No Primary Time spent on discharge: < 30 minutes Pending Labs Laboratory Tests Test 06/22/17 05:07 White Blood Count 5.010^3/ul (4.8-10.8) Red Blood Count 3.5110^6/ul (4.70-6.10) Hemoglobin 11.5g/dl (14.0-18.0) Hematocrit 35.2% (42.0-52.0) Mean Corpuscular Volume 100.3fl (82.0-101.0) Mean Corpuscular Hemoglobin 32.8pg (29.0-33.0) Mean Corpuscular Hemoglobin Concent 32.7g/dl (32.0-37.0) Red Cell Distribution Width 14.6% (11.5-14.5) Platelet Count 11602^3/UL (140-415) Mean Platelet Volume 10.8fl (7.4-10.4) Neutrophils % 63.5% (39.0-77.0) Lymphocytes % 21.2% (15.0-51.0) Monocytes % 13.1% (0.0-11.0) Eosinophils % 1.0% (0.0-7.0) Basophils % 0.6% (0.0-2.0) Nucleated Red Blood Cells % 0.0/100WBC (0.0-0.0) Neutrophils # 3.210^3/ul (1.6-7.5) Lymphocytes # 1.110^3/ul (0.8-2.9) Monocytes # 0.710^3/ul (0.3-0.9) Eosinophils # 0.110^3/ul (0.0-0.5) Basophils # 0.010^3/ul (0.0-0.1) Nucleated Red Blood Cells # 0.010^3/ul (0.0-0.0) Sodium Level 140mmol/L (135-144) Potassium Level 4.1mmol/L (3.5-5.1) Chloride Level 108mmol/L (97-110) Carbon Dioxide Level 23mmol/L (21-31) Anion Gap 13 (8-16) Blood Urea Nitrogen 18mg/dl (7-20) Creatinine 0.64mg/dl (0.61-1.24) Glucose Level 108mg/dl (70-220) Calcium Level 8.8mg/dl (8.4-10.2) ASHANTI MARTINES Jun 22, 2017 08:58
[2017-06-22] MEDS: FAMOTIDINE 20 MG TAB PO SCH (09:23)
[2017-06-22 12:57] VITALS: BP 120/71; PULSE 71
[2017-06-22 14:17] VITALS: BP 108/70; RESP 18
== END 2017-06-22 17:09 | disposition home or self-care (01) | DRG 493 ==
LOC: PP2 16:30
PROVIDERS: ADMIT Internal Medicine Nephrology; ATTEND Internal Medicine Nephrology
PROC: 0SBG4ZZ Excision of Left Ankle Joint, Percutaneous Endoscopic Approach (ICD-10-PCS; principal; 2017-06-05 17:00)
PROC: 3E0U3GC Introduction of Other Therapeutic Substance into Joints, Percutaneous Approach (ICD-10-PCS; 2017-06-15)
DX: M00.072 Staphylococcal arthritis, left ankle and foot (principal); L03.116 Cellulitis of left lower limb; D69.59 Other secondary thrombocytopenia; K70.30 Alcoholic cirrhosis of liver without ascites; Z59.0 Homelessness; F10.20 Alcohol dependence, uncomplicated; D64.9 Anemia, unspecified; M65.872 Other synovitis and tenosynovitis, left ankle and foot; I10 Essential (primary) hypertension; B95.61 Methicillin susceptible Staphylococcus aureus infection as the cause of diseases classified elsewhere; R94.5 Abnormal results of liver function studies
CPT/HCPCS: 73610; 76700; 80048; 80053; 80202; 83036; 83735; 84100; 85025; 85610; 87040; 87070; 90686; 97110; 97116; 97161; 97530; J0131; J0696; J1100; J1170; J1885; J2250; J2270; J2405; J2765; J2795; J3010; J3370; J7050